=== PATIENT | male | born 1960 | race Two or more races ===

== ENCOUNTER → 2023-04-02 | Outpatient (CLI) | payer OTHER, MEDICAID ==
[2023-04-02 08:39] LABS: Basophils # (auto) 0 10 ^3/uL (0-0.2); Basophils % (auto) 0.7 % (0.0-2.0); Eosinophils # (auto) 0.3 10 ^3/uL (0-0.8); Eosinophils % (auto) 5.6 % (0.0-7.0); Hematocrit 42.8 % (41.0-53.0); Hemoglobin 14.7 g/dL (13.5-17.5); Lymphocytes # (auto) 1.6 10 ^3/uL (0.4-5.4); Lymphocytes % (auto) 35.5 % (10.0-50.0); Mean Corpuscular Hemoglobin 29.9 pg (28.0-32.0); Mean Corpuscular Hgb Conc. 34.2 g/dL (32.0-36.0); Mean Corpuscular Volume 87.3 fL (80.0-100.0); Monocytes # (auto) 0.3 10 ^3/uL (0-1.3); Monocytes % (auto) 5.7 % (0.0-12.0); Neutrophils # (auto) 2.3 10 ^3/uL (1.6-8.6); Neutrophils % (auto) 52.5 % (37.0-80.0); Nucleated Red Blood Cells % 0.1 %; Red Blood Cells 4.91 10^6/uL (4.5-5.90); Red Cell Distribution Width 13.7 % (11.8-14.3); White Blood Cell 4.4 10^3/uL (4.4-10.8)
[2023-04-02 09:24] LABS: Alanine Aminotransferase 18 U/L (7-40); Albumin 4.3 g/dL (3.2-4.8); Alkaline Phosphatase 83 U/L (46-116); Anion Gap 5 (5-15); Aspartate Aminotransferase 22 U/L (13-40); BUN/Creatinine Ratio 9.7 (10.0-20.0); Bilirubin, Total 0.7 mg/dL (0.2-1.0); Blood Urea Nitrogen 12 mg/dL (9-23); Calcium 9.5 mg/dL (8.5-10.1); Carbon Dioxide 28 mmol/L (20-30); Chloride 106 mmol/L (98-107); Cholesterol 196 mg/dL (< 200); Glucose 95 mg/dL (74-106); HDL Cholesterol 27 mg/dL (40-59); LDL Cholesterol 151 mg/dL (< 100); Potassium 3.8 mmol/L (3.5-5.1); Sodium 139 mmol/L (136-145); Triglycerides 104 mg/dL (< 150)
[2023-04-02 09:25] LABS: Total Protein 7.4 g/dL (5.7-8.2)
[2023-04-02 09:30] LABS: Erythrocyte Sedimentation Rate 9 mm/hr (0-20)
[2023-04-02 09:59] LABS: Uric Acid 8.2 mg/dL (3.7-9.2)
[2023-04-02 12:47] LABS: Urine Bacteria NONE SEEN /hpf (None Seen); Urine Blood Negative /uL (Negative); Urine Clarity Clear (Clear); Urine Color Yellow (Yellow); Urine Protein, UAD Negative (Negative); Urine Specific Gravity 1.019 (1.001-1.035); Urine Urobilinogen Normal (Negative); Urine WBC <1 /hpf (0 - 3); Urine pH 6.5 (5.0-8.0)
== END | disposition home or self-care (01) ==
LOC: LAB 08:19
PROVIDERS: ATTEND Internal Medicine
DX: Z12.5 Encounter for screening for malignant neoplasm of prostate (principal); M06.9 Rheumatoid arthritis, unspecified; M54.50 Low back pain, unspecified; M25.551 Pain in right hip; M79.641 Pain in right hand; F81.9 Developmental disorder of scholastic skills, unspecified
CPT/HCPCS: 36415; 80053; 80061; 81001; 83036; 84153; 84550; 85025; 85652; 86431

== ENCOUNTER 2023-05-01 10:37 | Inpatient (IN) | payer OTHER, MEDICAID ==
[~2023-05-01] VITALS: Ht 188 cm; Wt 102.6 kg
[2023-05-01 11:07] LABS: Basophils # (auto) 0.1 10 ^3/uL (0-0.2); Basophils % (auto) 1.5 % (0.0-2.0); Eosinophils # (auto) 0.1 10 ^3/uL (0-0.8); Eosinophils % (auto) 1.3 % (0.0-7.0); Hematocrit 45.7 % (41.0-53.0); Hemoglobin 15.6 g/dL (13.5-17.5); Lymphocytes # (auto) 1.9 10 ^3/uL (0.4-5.4); Lymphocytes % (auto) 30.6 % (10.0-50.0); Mean Corpuscular Hgb Conc. 34.2 g/dL (32.0-36.0); Mean Corpuscular Volume 87.7 fL (80.0-100.0); Monocytes # (auto) 0.2 10 ^3/uL (0-1.3); Monocytes % (auto) 4.1 % (0.0-12.0); Neutrophils # (auto) 3.8 10 ^3/uL (1.6-8.6); Neutrophils % (auto) 62.5 % (37.0-80.0); Nucleated Red Blood Cells % 0.6 %; Red Blood Cells 5.21 10^6/uL (4.5-5.90); Red Cell Distribution Width 13.9 % (11.8-14.3); White Blood Cell 6.1 10^3/uL (4.4-10.8)
[2023-05-01 11:20] LABS: Chloride 109 mmol/L (98-107); Potassium 3.7 mmol/L (3.5-5.1); Sodium 144 mmol/L (136-145)
[2023-05-01 11:21] LABS: Anion Gap 6 (5-15); Calcium 9.5 mg/dL (8.5-10.1); Carbon Dioxide 29 mmol/L (20-30)
[2023-05-01 11:23] LABS: INR 1.1 (0.9-1.15); Prothrombin Time 11.5 sec (9.3-11.8)
[2023-05-01 11:26] LABS: BUN/Creatinine Ratio 7.8 (10.0-20.0); Blood Urea Nitrogen 9 mg/dL (9-23); Glucose 97 mg/dL (74-106)
[2023-05-01] MEDS: ASPirin 81 mg TAB PO ONE (11:58)
[2023-05-01 14:18] LABS: Urine Bacteria NONE SEEN /hpf (None Seen); Urine Blood Negative /uL (Negative); Urine Clarity Clear (Clear); Urine Color Yellow (Yellow); Urine Mucus FEW (None Seen); Urine Protein, UAD TRACE (Negative); Urine Specific Gravity 1.023 (1.001-1.035); Urine Urobilinogen Normal (Negative); Urine WBC 2 /hpf (0 - 3); Urine pH 5.5 (5.0-8.0)
[2023-05-01 15:23] VITALS: PULSE 71; RESP 18; O2SAT 96
[2023-05-01] MEDS ORDERED: NITROGLYCERIN 0.4 MG SL TAB SL PRN (15:30)
[2023-05-01] MEDS ORDERED: MORPHINE SULFATE INJ 2 MG/ml SYRG IV PRN (15:30)
[2023-05-01 17:10] VITALS: RESP 18; O2SAT 96
[2023-05-01 20:00] VITALS: PULSE 96
[2023-05-01] MEDS: ATORVASTATIN 20 MG TAB PO SCH (21:14)
[2023-05-01 22:08] VITALS: BP 104/55; PULSE 89; RESP 20; TEMP 98.6; O2SAT 96
[2023-05-02] VITALS (7 sets, daily range): BP systolic 110–129; BP diastolic 60–68; PULSE 64–89; RESP 16–20; TEMP 97.5–98.2; O2SAT 91–97
[2023-05-02 06:12] LABS: Basophils # (auto) 0 10 ^3/uL (0-0.2); Basophils % (auto) 0.4 % (0.0-2.0); Eosinophils # (auto) 0.2 10 ^3/uL (0-0.8); Hematocrit 42.6 % (41.0-53.0); Hemoglobin 14.6 g/dL (13.5-17.5); Lymphocytes # (auto) 1.7 10 ^3/uL (0.4-5.4); Lymphocytes % (auto) 30.9 % (10.0-50.0); Mean Corpuscular Hgb Conc. 34.2 g/dL (32.0-36.0); Mean Corpuscular Volume 87.9 fL (80.0-100.0); Monocytes # (auto) 0.3 10 ^3/uL (0-1.3); Monocytes % (auto) 5.9 % (0.0-12.0); Neutrophils # (auto) 3.3 10 ^3/uL (1.6-8.6); Neutrophils % (auto) 58.8 % (37.0-80.0); Nucleated Red Blood Cells % 0.1 %; Red Blood Cells 4.85 10^6/uL (4.5-5.90); Red Cell Distribution Width 13.7 % (11.8-14.3); White Blood Cell 5.6 10^3/uL (4.4-10.8)
[2023-05-02 06:16] LABS: Chloride 110 mmol/L (98-107); Potassium 3.4 mmol/L (3.5-5.1); Sodium 142 mmol/L (136-145)
[2023-05-02 06:17] LABS: Anion Gap 5 (5-15); Carbon Dioxide 27 mmol/L (20-30)
[2023-05-02 06:18] LABS: Calcium 8.7 mg/dL (8.7-10.4)
[2023-05-02 06:22] LABS: Glucose 100 mg/dL (74-106)
[2023-05-02 06:23] LABS: BUN/Creatinine Ratio 11.7 (10.0-20.0); Blood Urea Nitrogen 13 mg/dL (9-23); Magnesium 1.8 mg/dL (1.6-2.6)
[2023-05-02 08:44] LABS: LDL Cholesterol 133 mg/dL (< 100); Triglycerides 100 mg/dL (< 150)
[2023-05-02 08:46] LABS: Cholesterol 169 mg/dL (< 200); HDL Cholesterol 26 mg/dL (40-59)
[2023-05-02] MEDS ORDERED: ASPirin 81 mg TAB PO SCH ×2 (10:00)
[2023-05-02] MEDS ORDERED: CLOPIDOGREL BISULFATE 75 MG TAB PO SCH (10:00)
[2023-05-02] MEDS: ENOXAPARIN SOD 40 MG/0.4 ML SYRINGE SC ONE (12:53)
[2023-05-02] MEDS: POTASSIUM CHL 10 Meq TABLET PO ONE (12:53)
[2023-05-03] VITALS (8 sets, daily range): BP systolic 90–132; BP diastolic 60–79; PULSE 71–85; RESP 18–20; TEMP 97.9–98.6; O2SAT 94–98
[2023-05-03 06:13] LABS: Chloride 108 mmol/L (98-107); Potassium 3.5 mmol/L (3.5-5.1); Sodium 141 mmol/L (136-145)
[2023-05-03 06:14] LABS: Anion Gap 7 (5-15); Calcium 8.6 mg/dL (8.7-10.4); Carbon Dioxide 26 mmol/L (20-30)
[2023-05-03 06:19] LABS: BUN/Creatinine Ratio 13.2 (10.0-20.0); Blood Urea Nitrogen 14 mg/dL (9-23); Glucose 110 mg/dL (74-106)
[2023-05-03 06:20] LABS: Magnesium 1.9 mg/dL (1.6-2.6)
[2023-05-03] MEDS ORDERED: IBUPROFEN 400 MG TAB PO PRN (10:30)
[2023-05-03] MEDS ORDERED: ACETAMINOPHEN 500 MG TAB PO PRN (10:30)
[2023-05-03] MEDS: ENOXAPARIN SOD 40 MG/0.4 ML SYRINGE SC SCH (10:50)
[2023-05-03] MEDS: PANTOPRAZOLE 40 MG TAB PO ONE (10:54)
[2023-05-03] MEDS: DexAMETHasone SOD PHOS 10MG/1ML VIAL INJ IV ONE (11:20)
[2023-05-03] MEDS: LORazepam 2MG/ML-1ML VIAL IV ONE (11:45)
[2023-05-03] MEDS ORDERED: DexAMETHasone 4 MG TAB PO SCH (12:00)
[2023-05-03] MEDS: DexAMETHasone 4 MG TAB PO SCH (17:39)
[2023-05-04] VITALS (7 sets, daily range): BP systolic 106–128; BP diastolic 44–81; PULSE 70–95; RESP 16–20; TEMP 97.4–98.1; O2SAT 94–98
[2023-05-04] MEDS: PANTOPRAZOLE 40 MG TAB PO SCH (09:25)
[2023-05-05] VITALS (7 sets, daily range): BP systolic 110–143; BP diastolic 64–84; PULSE 61–75; RESP 18–20; TEMP 97.6–98.3; O2SAT 94–99
[2023-05-06] VITALS (8 sets, daily range): BP systolic 100–129; BP diastolic 53–99; PULSE 58–74; RESP 17–20; TEMP 97.6–98.4; O2SAT 95–99
[2023-05-06 05:40] LABS: Basophils # (auto) 0 10 ^3/uL (0-0.2); Basophils % (auto) 0.1 % (0.0-2.0); Eosinophils # (auto) 0 10 ^3/uL (0-0.8); Hemoglobin 15.2 g/dL (13.5-17.5); Lymphocytes # (auto) 1.2 10 ^3/uL (0.4-5.4); Lymphocytes % (auto) 11.4 % (10.0-50.0); Mean Corpuscular Hemoglobin 30.5 pg (28.0-32.0); Mean Corpuscular Hgb Conc. 34.7 g/dL (32.0-36.0); Monocytes # (auto) 0.3 10 ^3/uL (0-1.3); Neutrophils # (auto) 9.1 10 ^3/uL (1.6-8.6); Neutrophils % (auto) 85.5 % (37.0-80.0); Red Cell Distribution Width 13.8 % (11.8-14.3); White Blood Cell 10.6 10^3/uL (4.4-10.8)
[2023-05-06 05:58] LABS: Alanine Aminotransferase 33 U/L (7-40); Alkaline Phosphatase 85 U/L (46-116); Anion Gap 5 (5-15); Aspartate Aminotransferase 30 U/L (13-40); BUN/Creatinine Ratio 19.7 (10.0-20.0); Blood Urea Nitrogen 23 mg/dL (9-23); Calcium 9.2 mg/dL (8.7-10.4); Carbon Dioxide 26 mmol/L (20-30); Chloride 106 mmol/L (98-107); Glucose 119 mg/dL (74-106); Magnesium 2.2 mg/dL (1.6-2.6); Potassium 4.2 mmol/L (3.5-5.1); Sodium 137 mmol/L (136-145)
[2023-05-06 05:59] LABS: Bilirubin, Total 0.6 mg/dL (0.2-1.0); Total Protein 7.1 g/dL (5.7-8.2)
[2023-05-07 05:18] VITALS: BP 135/77; PULSE 58; RESP 17; TEMP 97.7; O2SAT 96
[2023-05-07 06:03] LABS: Anion Gap 5 (5-15); Carbon Dioxide 27 mmol/L (20-30); Chloride 105 mmol/L (98-107); Potassium 4.2 mmol/L (3.5-5.1); Sodium 137 mmol/L (136-145)
[2023-05-07 06:04] LABS: Calcium 9.5 mg/dL (8.7-10.4)
[2023-05-07 06:09] LABS: BUN/Creatinine Ratio 19.7 (10.0-20.0); Blood Urea Nitrogen 23 mg/dL (9-23); Glucose 116 mg/dL (74-106)
[2023-05-07 06:10] LABS: Magnesium 2.3 mg/dL (1.6-2.6)
[2023-05-07 08:00] VITALS: PULSE 54
[2023-05-07 09:00] VITALS: BP 120/74; PULSE 60; RESP 17; TEMP 97.7; O2SAT 99
[2023-05-07] MEDS ORDERED: fentaNYL CITRATE 100 MCG/2 ML VL ONE ×2 (12:36→15:32)
[2023-05-07] MEDS ORDERED: MEPERIDINE HCL (50 MG/ML) 1 ML VIAL ONE (12:36)
[2023-05-07] MEDS ORDERED: MIDAZOLAM HCL 2MG/2ML 2ml VIAL (1mg/ml) ONE (12:37)
[2023-05-07] MEDS ORDERED: ePHEDrine SULFATE 50 MG/ML AMP IV PRN (13:45)
[2023-05-07] MEDS ORDERED: ONDANSETRON HCL 4 MG/2 ML VIAL IV PRN ×2 (13:45→16:15)
[2023-05-07] MEDS ORDERED: hydrALAZINE HCL 20 MG/ML VL IV PRN (13:45)
[2023-05-07] MEDS ORDERED: MORPHINE SULFATE 4 MG/ML SYR/VIAL IV PRN (13:45)
[2023-05-07] MEDS ORDERED: LABETALOL HCL 5 MG/ML 4ML SYRINGE IV PRN (13:45)
[2023-05-07] MEDS ORDERED: MIDAZOLAM HCL 2MG/2ML 2ml VIAL (1mg/ml) IV PRN (13:45)
[2023-05-07] MEDS ORDERED: HYDROmorphone HCL 2 MG/ML VL/or syr IV PRN (13:45)
[2023-05-07] MEDS ORDERED: ONDANSETRON HCL 4 MG/2 ML VIAL ONE (13:47)
[2023-05-07] MEDS ORDERED: PROPOFOL 10 MG/ML 20 ML IV ONE (13:47)
[2023-05-07] MEDS ORDERED: DexAMETHasone SOD PHOS 10MG/1ML VIAL INJ ONE (13:47)
[2023-05-07] MEDS ORDERED: SUGAMMADEX 200mg/2ml Vial (100MG/ML) IV ONE (16:20)
[2023-05-07 16:48] VITALS: O2SAT 97
[2023-05-07] MEDS: ceFAZolin 1GM/50ML 50 ML IV SCH (18:28)
[2023-05-07] MEDS: D5W/SOD CHLO 0.9% 1,000 ML IV SCH (18:28)
[2023-05-07] MEDS: TRANEXAMIC ACID 20 ML ONE (18:38)
[2023-05-07] MEDS: ceFAZolin 2 GM/D5W50ml 50 ML IV ONE (18:38)
[2023-05-07 20:00] VITALS: PULSE 106
[2023-05-07 22:00] VITALS: BP 143/70; PULSE 94; RESP 18; TEMP 97.4; O2SAT 94
[2023-05-07] MEDS: CYCLOBENZAPRINE HCL 10 MG TAB PO SCH (22:09)
[2023-05-07] MEDS: DOCUSATE SOD 100 MG CAP PO SCH (22:10)
[2023-05-08] VITALS (9 sets, daily range): BP systolic 115–154; BP diastolic 68–83; PULSE 19–93; RESP 18–75; TEMP 97.8–98.8; O2SAT 95–100
[2023-05-08] MEDS: ceFAZolin 1GM/50ML 50 ML IV SCH ×2 (03:03→17:00)
[2023-05-08 08:19] LABS: Basophils # (auto) 0 10 ^3/uL (0-0.2); Basophils % (auto) 0.2 % (0.0-2.0); Eosinophils # (auto) 0 10 ^3/uL (0-0.8); Eosinophils % (auto) 0.1 % (0.0-7.0); Hematocrit 42.6 % (41.0-53.0); Hemoglobin 14.8 g/dL (13.5-17.5); Lymphocytes # (auto) 0.8 10 ^3/uL (0.4-5.4); Lymphocytes % (auto) 7.4 % (10.0-50.0); Mean Corpuscular Hemoglobin 30.4 pg (28.0-32.0); Mean Corpuscular Hgb Conc. 34.7 g/dL (32.0-36.0); Mean Corpuscular Volume 87.5 fL (80.0-100.0); Monocytes # (auto) 0.7 10 ^3/uL (0-1.3); Monocytes % (auto) 6.5 % (0.0-12.0); Neutrophils # (auto) 9.1 10 ^3/uL (1.6-8.6); Neutrophils % (auto) 85.8 % (37.0-80.0); Nucleated Red Blood Cells % 0.1 %; Red Blood Cells 4.87 10^6/uL (4.5-5.90); Red Cell Distribution Width 13.8 % (11.8-14.3); White Blood Cell 10.6 10^3/uL (4.4-10.8)
[2023-05-08] MEDS ORDERED: ALBUTEROL SULF 2.5 MG/0.5ML(0.5%) NEB SOLN NEB PRN (08:30)
[2023-05-08 08:35] LABS: Alanine Aminotransferase 36 U/L (7-40); Albumin 3.8 g/dL (3.2-4.8); Alkaline Phosphatase 78 U/L (46-116); Anion Gap 3 (5-15); Aspartate Aminotransferase 29 U/L (13-40); BUN/Creatinine Ratio 14.7 (10.0-20.0); Bilirubin, Total 0.7 mg/dL (0.2-1.0); Blood Urea Nitrogen 14 mg/dL (9-23); Calcium 8.4 mg/dL (8.5-10.1); Carbon Dioxide 25 mmol/L (20-30); Chloride 106 mmol/L (98-107); Glucose 128 mg/dL (74-106); Potassium 4.1 mmol/L (3.5-5.1); Sodium 134 mmol/L (136-145); Total Protein 6.2 g/dL (5.7-8.2)
[2023-05-08] MEDS: ceFAZolin 1GM/50ML 50 ML IV ONE (09:30)
[2023-05-08] MEDS: amLODIPine BESYLATE 5 MG TAB PO SCH (09:31)
[2023-05-08 10:55] LABS: Magnesium 2.1 mg/dL (1.6-2.6)
[2023-05-08] MEDS: CYCLOBENZAPRINE HCL 10 MG TAB PO SCH (13:29)
[2023-05-09] VITALS (14 sets, daily range): BP systolic 97–132; BP diastolic 51–79; PULSE 87–157; RESP 18–20; TEMP 97.9–100.6; O2SAT 92–100
[2023-05-09 06:26] LABS: Basophils # (auto) 0 10 ^3/uL (0-0.2); Eosinophils # (auto) 0 10 ^3/uL (0-0.8); Eosinophils % (auto) 0.6 % (0.0-7.0); Hematocrit 45.4 % (41.0-53.0); Hemoglobin 15.3 g/dL (13.5-17.5); Lymphocytes # (auto) 0.9 10 ^3/uL (0.4-5.4); Mean Corpuscular Hemoglobin 30.5 pg (28.0-32.0); Mean Corpuscular Hgb Conc. 33.6 g/dL (32.0-36.0); Mean Corpuscular Volume 90.7 fL (80.0-100.0); Monocytes # (auto) 0.9 10 ^3/uL (0-1.3); Monocytes % (auto) 10.4 % (0.0-12.0); Neutrophils # (auto) 6.3 10 ^3/uL (1.6-8.6); Nucleated Red Blood Cells % 0.2 %; Red Cell Distribution Width 13.9 % (11.8-14.3); White Blood Cell 8.1 10^3/uL (4.4-10.8)
[2023-05-09 08:42] LABS: Chloride 107 mmol/L (98-107); Potassium 3.5 mmol/L (3.5-5.1); Sodium 135 mmol/L (136-145)
[2023-05-09 08:43] LABS: Anion Gap 3 (5-15); Calcium 8.5 mg/dL (8.5-10.1); Carbon Dioxide 25 mmol/L (20-30)
[2023-05-09 08:48] LABS: BUN/Creatinine Ratio 14.8 (10.0-20.0); Blood Urea Nitrogen 13 mg/dL (9-23); Glucose 117 mg/dL (74-106)
[2023-05-09] MEDS: DOCUSATE SOD 100 MG CAP PO PRN (09:33)
[2023-05-09] MEDS: MORPHINE SULFATE 4 MG/ML SYR/VIAL IV PRN (13:00)
[2023-05-09] MEDS: SODIUM CHLORIDE 0.9% 1,000 ML IV SCH (14:00)
[2023-05-09] MEDS: POTASSIUM CHL 20 Meq TABLET PO ONE (14:47)
[2023-05-09] MEDS: ADENOSINE 6 MG/2 ML INJ IV ONE ×2 (15:34→15:42)
[2023-05-09] MEDS: METOPROLOL TARTRATE 1MG/1ML-5ML VIAL IV ONE ×2 (15:34→15:42)
[2023-05-09] MEDS: LORazepam 0.5 MG TAB PO PRN (15:59)
[2023-05-09] MEDS: ACETAMINOPHEN 325 MG TAB PO PRN (17:11)
[2023-05-09] MEDS: SODIUM CHLORIDE 0.9% 1,000 ML IV ONE (17:30)
[2023-05-09 19:03] LABS: Urine Bacteria NONE SEEN /hpf (None Seen); Urine Blood 1+ /uL (Negative); Urine Clarity Clear (Clear); Urine Color Yellow (Yellow); Urine Mucus FEW (None Seen); Urine Protein, UAD TRACE (Negative); Urine Specific Gravity 1.019 (1.001-1.035); Urine Urobilinogen Normal (Negative); Urine WBC 1 /hpf (0 - 3); Urine pH 5.5 (5.0-8.0)
[2023-05-09] MEDS ORDERED: ceFAZolin 1GM/50ML 50 ML IV SCH (20:00)
[2023-05-10] VITALS (7 sets, daily range): BP systolic 101–139; BP diastolic 60–70; PULSE 89–133; RESP 16–20; TEMP 97.4–100.6; O2SAT 95–99
[2023-05-10] MEDS: ceFAZolin 1GM/50ML 50 ML IV SCH (04:11)
[2023-05-10 05:52] LABS: Basophils # (auto) 0 10 ^3/uL (0-0.2); Basophils % (auto) 0.1 % (0.0-2.0); Eosinophils # (auto) 0 10 ^3/uL (0-0.8); Eosinophils % (auto) 0.2 % (0.0-7.0); Hematocrit 40.6 % (41.0-53.0); Hemoglobin 14.4 g/dL (13.5-17.5); Lymphocytes # (auto) 0.8 10 ^3/uL (0.4-5.4); Lymphocytes % (auto) 8.6 % (10.0-50.0); Mean Corpuscular Hgb Conc. 35.5 g/dL (32.0-36.0); Mean Corpuscular Volume 87.2 fL (80.0-100.0); Monocytes # (auto) 0.4 10 ^3/uL (0-1.3); Monocytes % (auto) 4.4 % (0.0-12.0); Neutrophils # (auto) 7.9 10 ^3/uL (1.6-8.6); Neutrophils % (auto) 86.7 % (37.0-80.0); Red Blood Cells 4.66 10^6/uL (4.5-5.90); White Blood Cell 9.1 10^3/uL (4.4-10.8)
[2023-05-10 05:59] LABS: Chloride 107 mmol/L (98-107); Potassium 3.9 mmol/L (3.5-5.1); Sodium 136 mmol/L (136-145)
[2023-05-10 06:00] LABS: Anion Gap 6 (5-15); Calcium 8.5 mg/dL (8.7-10.4); Carbon Dioxide 23 mmol/L (20-30)
[2023-05-10 06:05] LABS: BUN/Creatinine Ratio 19.8 (10.0-20.0); Blood Urea Nitrogen 20 mg/dL (9-23); Glucose 118 mg/dL (74-106)
[2023-05-10 06:06] LABS: Magnesium 1.9 mg/dL (1.6-2.6)
[2023-05-10] MEDS ORDERED: VANCOMYCIN PER PHARMACY 0 MG IV SCH (11:30)
[2023-05-10] MEDS: VANCOMYCIN 1GM/200ML 200 ML IV ONE (13:22)
[2023-05-10] MEDS: MEROPENEM 2 GM in SODIUM CHL 0.9% 250 ML IV SCH (16:05)
[2023-05-10] MEDS ORDERED: DexAMETHasone SOD PHOS 10MG/1ML VIAL INJ IV SCH (18:00)
[2023-05-10] MEDS ORDERED: PANTOPRAZOLE 40 MG/10 ML VIAL INJ IV ONE (18:00)
[2023-05-10] MEDS: VANCOMYCIN 1GM/200ML 200 ML IV SCH (20:57)
[2023-05-10] MEDS: HYDROcodone-ACET 10/325MG TAB PO PRN (22:31)
[2023-05-11] VITALS (7 sets, daily range): BP systolic 103–124; BP diastolic 58–70; PULSE 87–106; RESP 14–20; TEMP 97.5–98; O2SAT 94–100
[2023-05-11 05:29] LABS: Basophils # (auto) 0 10 ^3/uL (0-0.2); Basophils % (auto) 0.1 % (0.0-2.0); Eosinophils # (auto) 0.1 10 ^3/uL (0-0.8); Eosinophils % (auto) 0.9 % (0.0-7.0); Hematocrit 38.7 % (41.0-53.0); Hemoglobin 13.3 g/dL (13.5-17.5); Lymphocytes # (auto) 1.2 10 ^3/uL (0.4-5.4); Lymphocytes % (auto) 18.2 % (10.0-50.0); Mean Corpuscular Hemoglobin 30.4 pg (28.0-32.0); Mean Corpuscular Hgb Conc. 34.4 g/dL (32.0-36.0); Mean Corpuscular Volume 88.2 fL (80.0-100.0); Monocytes # (auto) 0.7 10 ^3/uL (0-1.3); Monocytes % (auto) 10.9 % (0.0-12.0); Neutrophils # (auto) 4.5 10 ^3/uL (1.6-8.6); Neutrophils % (auto) 69.9 % (37.0-80.0); Nucleated Red Blood Cells % 0.1 %; Red Blood Cells 4.39 10^6/uL (4.5-5.90); Red Cell Distribution Width 13.9 % (11.8-14.3); White Blood Cell 6.5 10^3/uL (4.4-10.8)
[2023-05-11 05:51] LABS: Alanine Aminotransferase 48 U/L (7-40); Alkaline Phosphatase 71 U/L (46-116); Anion Gap 6 (5-15); Aspartate Aminotransferase 66 U/L (13-40); BUN/Creatinine Ratio 19.8 (10.0-20.0); Blood Urea Nitrogen 20 mg/dL (9-23); Calcium 7.7 mg/dL (8.7-10.4); Carbon Dioxide 23 mmol/L (20-30); Chloride 108 mmol/L (98-107); Glucose 121 mg/dL (74-106); Magnesium 2.1 mg/dL (1.6-2.6); Potassium 3.7 mmol/L (3.5-5.1); Sodium 137 mmol/L (136-145)
[2023-05-11 05:52] LABS: Bilirubin, Total 1.2 mg/dL (0.2-1.0); Total Protein 5.6 g/dL (5.7-8.2)
[2023-05-11] MEDS ORDERED: PANTOPRAZOLE 40 MG/10 ML VIAL INJ IV SCH (10:00)
[2023-05-11 10:19] LABS: INR 1.19 (0.9-1.15); Partial Thromboplastin Time 37.3 SEC (24.5-34.5); Prothrombin Time 12.4 sec (9.3-11.8)
[2023-05-11] MEDS: MILK OF MAGNESIA 30ML SUSP PO PRN (10:28)
[2023-05-11] MEDS: SODIUM CHLORIDE 0.9% 1,000 ML IV SCH (16:30)
[2023-05-12 05:00] VITALS: BP_SYST 116; BP_SYST 117; BP_DIAS 44; BP_DIAS 57; PULSE 77; PULSE 87; RESP 17; RESP 19; TEMP 97.8; TEMP 98; O2SAT 94; O2SAT 96
[2023-05-12 06:23] LABS: Basophils # (auto) 0 10 ^3/uL (0-0.2); Basophils % (auto) 0.1 % (0.0-2.0); Eosinophils # (auto) 0.1 10 ^3/uL (0-0.8); Eosinophils % (auto) 1.8 % (0.0-7.0); Hematocrit 36.1 % (41.0-53.0); Hemoglobin 12.5 g/dL (13.5-17.5); Lymphocytes # (auto) 1.2 10 ^3/uL (0.4-5.4); Lymphocytes % (auto) 16.8 % (10.0-50.0); Mean Corpuscular Hemoglobin 30.5 pg (28.0-32.0); Mean Corpuscular Hgb Conc. 34.6 g/dL (32.0-36.0); Mean Corpuscular Volume 88.2 fL (80.0-100.0); Monocytes # (auto) 0.7 10 ^3/uL (0-1.3); Monocytes % (auto) 9.3 % (0.0-12.0); Neutrophils # (auto) 5.3 10 ^3/uL (1.6-8.6); Red Blood Cells 4.09 10^6/uL (4.5-5.90); Red Cell Distribution Width 14.3 % (11.8-14.3); White Blood Cell 7.4 10^3/uL (4.4-10.8)
[2023-05-12 06:37] LABS: Alanine Aminotransferase 58 U/L (7-40); Albumin 2.9 g/dL (3.2-4.8); Alkaline Phosphatase 68 U/L (46-116); Anion Gap 5 (5-15); Aspartate Aminotransferase 86 U/L (13-40); BUN/Creatinine Ratio 22.4 (10.0-20.0); Blood Urea Nitrogen 19 mg/dL (9-23); Calcium 8.1 mg/dL (8.7-10.4); Carbon Dioxide 24 mmol/L (20-30); Chloride 107 mmol/L (98-107); Glucose 120 mg/dL (74-106); Potassium 3.7 mmol/L (3.5-5.1); Sodium 136 mmol/L (136-145)
[2023-05-12 06:38] LABS: Bilirubin, Total 0.6 mg/dL (0.2-1.0); Total Protein 5.3 g/dL (5.7-8.2)
[2023-05-12 06:48] LABS: Creatine Kinase IFCC 2075 U/L (46-171)
[2023-05-12 09:00] VITALS: BP 131/59; PULSE 77; RESP 18; TEMP 97.6; O2SAT 100
[2023-05-12] MEDS: SODIUM CHLORIDE 0.9% 1,000 ML IV SCH (12:45)
[2023-05-12 13:00] VITALS: BP 114/60; PULSE 91; RESP 20; TEMP 98; O2SAT 99
[2023-05-12 17:00] VITALS: BP 137/74; PULSE 100; RESP 18; TEMP 98.5; O2SAT 100
[2023-05-12 20:00] VITALS: BP 130/75; PULSE 96; PULSE 97; PULSE 99; RESP 20; TEMP 98.6; O2SAT 99
[2023-05-12 22:00] VITALS: BP 130/75; PULSE 102; RESP 20; TEMP 98.6; O2SAT 99
[2023-05-13] VITALS (8 sets, daily range): BP systolic 131–140; BP diastolic 74–87; PULSE 85–115; RESP 17–21; TEMP 97.9–98.8; O2SAT 96–100
[2023-05-13 04:40] LABS: Basophils # (auto) 0 10 ^3/uL (0-0.2); Basophils % (auto) 0.2 % (0.0-2.0); Eosinophils # (auto) 0.1 10 ^3/uL (0-0.8); Eosinophils % (auto) 1.7 % (0.0-7.0); Hematocrit 40.2 % (41.0-53.0); Hemoglobin 13.6 g/dL (13.5-17.5); Lymphocytes # (auto) 1.5 10 ^3/uL (0.4-5.4); Lymphocytes % (auto) 18.9 % (10.0-50.0); Mean Corpuscular Hgb Conc. 33.9 g/dL (32.0-36.0); Mean Corpuscular Volume 88.4 fL (80.0-100.0); Monocytes # (auto) 0.8 10 ^3/uL (0-1.3); Monocytes % (auto) 10.3 % (0.0-12.0); Neutrophils # (auto) 5.3 10 ^3/uL (1.6-8.6); Neutrophils % (auto) 68.9 % (37.0-80.0); Nucleated Red Blood Cells % 0.1 %; Red Blood Cells 4.54 10^6/uL (4.5-5.90); Red Cell Distribution Width 14.1 % (11.8-14.3); White Blood Cell 7.7 10^3/uL (4.4-10.8)
[2023-05-13 04:54] LABS: Alanine Aminotransferase 79 U/L (7-40); Albumin 3.1 g/dL (3.2-4.8); Alkaline Phosphatase 74 U/L (46-116); Anion Gap 5 (5-15); Aspartate Aminotransferase 82 U/L (13-40); BUN/Creatinine Ratio 23.8 (10.0-20.0); Blood Urea Nitrogen 20 mg/dL (9-23); Calcium 8.4 mg/dL (8.7-10.4); Carbon Dioxide 25 mmol/L (20-30); Chloride 106 mmol/L (98-107); Glucose 113 mg/dL (74-106); Magnesium 1.9 mg/dL (1.6-2.6); Potassium 4.1 mmol/L (3.5-5.1); Sodium 136 mmol/L (136-145)
[2023-05-13 04:55] LABS: Bilirubin, Total 0.7 mg/dL (0.2-1.0); Total Protein 5.4 g/dL (5.7-8.2)
[2023-05-13] MEDS ORDERED: guaiFENesin-DM 100/10mg/5ml SYR PO PRN (09:00)
[2023-05-13] MEDS: SODIUM CHLORIDE 0.9% 1,000 ML IV SCH (09:00)
[2023-05-14] VITALS (9 sets, daily range): BP systolic 118–128; BP diastolic 61–70; PULSE 95–121; RESP 18–22; TEMP 36.8; O2SAT 93–100
[2023-05-14 06:35] LABS: Basophils # (auto) 0 10 ^3/uL (0-0.2); Basophils % (auto) 0.2 % (0.0-2.0); Eosinophils # (auto) 0.2 10 ^3/uL (0-0.8); Eosinophils % (auto) 1.9 % (0.0-7.0); Hematocrit 41.3 % (41.0-53.0); Hemoglobin 14.1 g/dL (13.5-17.5); Lymphocytes # (auto) 1.7 10 ^3/uL (0.4-5.4); Mean Corpuscular Hemoglobin 30.1 pg (28.0-32.0); Mean Corpuscular Hgb Conc. 34.3 g/dL (32.0-36.0); Mean Corpuscular Volume 87.9 fL (80.0-100.0); Monocytes # (auto) 0.8 10 ^3/uL (0-1.3); Neutrophils # (auto) 6.1 10 ^3/uL (1.6-8.6); Neutrophils % (auto) 69.9 % (37.0-80.0); Nucleated Red Blood Cells % 0.1 %; Red Blood Cells 4.69 10^6/uL (4.5-5.90); Red Cell Distribution Width 13.9 % (11.8-14.3); White Blood Cell 8.8 10^3/uL (4.4-10.8)
[2023-05-14 06:51] LABS: Alanine Aminotransferase 99 U/L (7-40); Alkaline Phosphatase 80 U/L (46-116); Anion Gap 4 (5-15); Aspartate Aminotransferase 84 U/L (13-40); BUN/Creatinine Ratio 22.2 (10.0-20.0); Blood Urea Nitrogen 18 mg/dL (9-23); Carbon Dioxide 27 mmol/L (20-30); Chloride 103 mmol/L (98-107); Glucose 100 mg/dL (74-106); Potassium 4.1 mmol/L (3.5-5.1); Sodium 134 mmol/L (136-145)
[2023-05-14 06:52] LABS: Albumin 3.4 g/dL (3.2-4.8); Bilirubin, Total 0.8 mg/dL (0.2-1.0); Creatine Kinase IFCC 1073 U/L (46-171); Total Protein 6.2 g/dL (5.7-8.2)
[2023-05-14] MEDS: IOHEXOL 300 MG/ML 100ML BOTTLE IJ ONE (12:16)
[2023-05-14] MEDS: SODIUM CHLORIDE 0.9% 1,000 ML IV SCH (13:29)
[2023-05-15] VITALS (8 sets, daily range): BP systolic 113–141; BP diastolic 68–73; PULSE 94–115; RESP 18–20; TEMP 97.7–98.3; O2SAT 96–100
[2023-05-15 05:25] LABS: Basophils # (auto) 0 10 ^3/uL (0-0.2); Basophils % (auto) 0.2 % (0.0-2.0); Eosinophils # (auto) 0.1 10 ^3/uL (0-0.8); Eosinophils % (auto) 1.4 % (0.0-7.0); Hematocrit 39.4 % (41.0-53.0); Hemoglobin 13.6 g/dL (13.5-17.5); Lymphocytes # (auto) 1.8 10 ^3/uL (0.4-5.4); Lymphocytes % (auto) 17.4 % (10.0-50.0); Mean Corpuscular Hemoglobin 30.1 pg (28.0-32.0); Mean Corpuscular Hgb Conc. 34.4 g/dL (32.0-36.0); Mean Corpuscular Volume 87.4 fL (80.0-100.0); Monocytes # (auto) 0.8 10 ^3/uL (0-1.3); Monocytes % (auto) 8.2 % (0.0-12.0); Neutrophils # (auto) 7.5 10 ^3/uL (1.6-8.6); Neutrophils % (auto) 72.8 % (37.0-80.0); Nucleated Red Blood Cells % 0.2 %; Red Blood Cells 4.51 10^6/uL (4.5-5.90); Red Cell Distribution Width 13.9 % (11.8-14.3); White Blood Cell 10.3 10^3/uL (4.4-10.8)
[2023-05-15 05:38] LABS: Chloride 100 mmol/L (98-107); Potassium 4.4 mmol/L (3.5-5.1); Sodium 134 mmol/L (136-145)
[2023-05-15 05:39] LABS: Anion Gap 7 (5-15); Calcium 9.1 mg/dL (8.7-10.4); Carbon Dioxide 27 mmol/L (20-30)
[2023-05-15 05:44] LABS: Glucose 118 mg/dL (74-106); Magnesium 2.1 mg/dL (1.6-2.6)
[2023-05-15 05:45] LABS: Creatine Kinase IFCC 745 U/L (46-171)
[2023-05-15 05:46] LABS: BUN/Creatinine Ratio 22.6 (10.0-20.0); Blood Urea Nitrogen 19 mg/dL (9-23)
[2023-05-16] VITALS (8 sets, daily range): BP systolic 117–133; BP diastolic 69–81; PULSE 91–108; RESP 18–20; TEMP 97.4–98.6; O2SAT 97–100
[2023-05-16] MEDS ORDERED: fentaNYL CITRATE 100 MCG/2 ML VL ONE (10:04)
[2023-05-16] MEDS ORDERED: MEPERIDINE HCL (25 MG/ML) 1ML VIAL ONE (10:04)
[2023-05-16] MEDS ORDERED: MIDAZOLAM HCL 2MG/2ML 2ml VIAL (1mg/ml) ONE (10:04)
[2023-05-16] MEDS ORDERED: DexAMETHasone SOD PHOS 10MG/1ML VIAL INJ ONE (10:07)
[2023-05-16] MEDS ORDERED: PROPOFOL 10 MG/ML 20 ML IV ONE (10:07)
[2023-05-16] MEDS ORDERED: ETOMIDATE (2MG/ML) 20ML VIAL IV ONE (10:29)
[2023-05-16] MEDS ORDERED: ONDANSETRON HCL 4 MG/2 ML VIAL IV ONE (10:29)
[2023-05-16] MEDS ORDERED: SUCCINYLCHOLINE CHLORIDE 20 MG/ML 10ML VIAL IV ONE (10:29)
[2023-05-17] VITALS (8 sets, daily range): BP systolic 108–123; BP diastolic 66–75; PULSE 68–114; RESP 14–20; TEMP 97.4–98.4; O2SAT 95–99
[2023-05-17 06:16] LABS: Basophils # (auto) 0 10 ^3/uL (0-0.2); Basophils % (auto) 0.1 % (0.0-2.0); Eosinophils # (auto) 0.1 10 ^3/uL (0-0.8); Eosinophils % (auto) 0.7 % (0.0-7.0); Hemoglobin 13.4 g/dL (13.5-17.5); Lymphocytes # (auto) 1.8 10 ^3/uL (0.4-5.4); Mean Corpuscular Hemoglobin 30.1 pg (28.0-32.0); Mean Corpuscular Hgb Conc. 34.5 g/dL (32.0-36.0); Mean Corpuscular Volume 87.4 fL (80.0-100.0); Monocytes # (auto) 0.7 10 ^3/uL (0-1.3); Monocytes % (auto) 7.4 % (0.0-12.0); Neutrophils # (auto) 6.9 10 ^3/uL (1.6-8.6); Neutrophils % (auto) 72.8 % (37.0-80.0); Red Blood Cells 4.46 10^6/uL (4.5-5.90); Red Cell Distribution Width 13.9 % (11.8-14.3); White Blood Cell 9.5 10^3/uL (4.4-10.8)
[2023-05-17 06:30] LABS: Alanine Aminotransferase 89 U/L (7-40); Albumin 3.6 g/dL (3.2-4.8); Alkaline Phosphatase 83 U/L (46-116); Anion Gap 5 (5-15); Aspartate Aminotransferase 51 U/L (13-40); Blood Urea Nitrogen 21 mg/dL (9-23); Calcium 9.3 mg/dL (8.7-10.4); Carbon Dioxide 29 mmol/L (20-30); Chloride 99 mmol/L (98-107); Glucose 112 mg/dL (74-106); Potassium 4.8 mmol/L (3.5-5.1); Sodium 133 mmol/L (136-145)
[2023-05-17 06:31] LABS: Bilirubin, Total 0.6 mg/dL (0.2-1.0)
[2023-05-17 07:10] LABS: BUN/Creatinine Ratio 24.1 (10.0-20.0)
[2023-05-17 07:11] LABS: Magnesium 2.2 mg/dL (1.6-2.6)
[2023-05-18] VITALS (8 sets, daily range): BP systolic 112–143; BP diastolic 65–74; PULSE 80–130; RESP 16–20; TEMP 97.7–98.7; O2SAT 98–100
[2023-05-19] VITALS (8 sets, daily range): BP systolic 97–119; BP diastolic 59–69; PULSE 99–112; RESP 18–20; TEMP 98–99.3; O2SAT 94–100
[2023-05-20 01:00] VITALS: BP 127/71; PULSE 107; RESP 15; TEMP 98.1; O2SAT 96
[2023-05-20 05:00] VITALS: BP 121/72; PULSE 99; RESP 19; TEMP 97.9; O2SAT 100
[2023-05-20 08:00] VITALS: PULSE 90; RESP 16; O2SAT 99
== END 2023-05-20 10:30 | DRG 28 ==
LOC: ER 10:37 → TELE 15:22 → TELE-EAST 18:21
PROVIDERS: ADMIT Internal Medicine Geriatric Medicine; ATTEND Internal Medicine
PROC: 00NW0ZZ Release Cervical Spinal Cord, Open Approach (ICD-10-PCS; 2023-05-07)
PROC: 01N10ZZ Release Cervical Nerve, Open Approach (ICD-10-PCS; 2023-05-07)
PROC: 0W9K00Z Drainage of Upper Back with Drainage Device, Open Approach (ICD-10-PCS; 2023-05-07)
PROC: 0RG20A0 Fusion of 2 or more Cervical Vertebral Joints with Interbody Fusion Device, Anterior Approach, Anterior Column, Open Approach (ICD-10-PCS; principal; 2023-05-07 12:24)
PROC: 3E10X8Z Irrigation of Skin and Mucous Membranes using Irrigating Substance (ICD-10-PCS; 2023-05-16)
DX: S14.123A Central cord syndrome at C3 level of cervical spinal cord, initial encounter (principal); A41.50 Gram-negative sepsis, unspecified; M50.021 Cervical disc disorder at C4-C5 level with myelopathy; M47.12 Other spondylosis with myelopathy, cervical region; D62 Acute posthemorrhagic anemia; I50.32 Chronic diastolic (congestive) heart failure; M62.82 Rhabdomyolysis; N39.0 Urinary tract infection, site not specified; M48.02 Spinal stenosis, cervical region; S14.129A Central cord syndrome at unspecified level of cervical spinal cord, initial encounter; M25.78 Osteophyte, vertebrae; E78.5 Hyperlipidemia, unspecified; M47.814 Spondylosis without myelopathy or radiculopathy, thoracic region; M51.24 Other intervertebral disc displacement, thoracic region; M48.061 Spinal stenosis, lumbar region without neurogenic claudication; M47.22 Other spondylosis with radiculopathy, cervical region; M50.121 Cervical disc disorder at C4-C5 level with radiculopathy; D69.59 Other secondary thrombocytopenia; E66.9 Obesity, unspecified; E87.6 Hypokalemia; F03.90 Unspecified dementia, unspecified severity, without behavioral disturbance, psychotic disturbance, mood disturbance, and anxiety; I11.0 Hypertensive heart disease with heart failure; M16.11 Unilateral primary osteoarthritis, right hip; M47.816 Spondylosis without myelopathy or radiculopathy, lumbar region; Z79.899 Other long term (current) drug therapy; Z68.29 Body mass index [BMI] 29.0-29.9, adult
CPT/HCPCS: 36415; 70450; 70490; 70491; 70496; 70551; 71045; 72141; 72146; 72148; 76000; 80048; 80053; 80061; 80202; 81001; 82550; 82553; 82607; 82962; 83605; 83615; 83735; 83880; 84443; 84484; 85025; 85610; 85730; 86850; 86900; 86901; 87040; 87075; 87077; 87081; 87086; 87088; 87186; 87205; 93005; 93306; 96379; 97110; 97163; 97530; G0378; J0153; J0330; J1100; J2250; J2405; J2704; J7042

== ENCOUNTER → 2024-03-09 | Outpatient (CLI) | payer OTHER, MEDICAID ==
[2024-03-09 10:45] LABS: Basophils # (auto) 0 10 ^3/uL (0-0.2); Basophils % (auto) 0.4 % (0.0-2.0); Eosinophils # (auto) 0.4 10 ^3/uL (0-0.8); Eosinophils % (auto) 6.2 % (0.0-7.0); Hematocrit 39.7 % (41.0-53.0); Hemoglobin 13.6 g/dL (13.5-17.5); Lymphocytes # (auto) 2.3 10 ^3/uL (0.4-5.4); Lymphocytes % (auto) 37.7 % (10.0-50.0); Mean Corpuscular Hemoglobin 29.1 pg (28.0-32.0); Mean Corpuscular Hgb Conc. 34.1 g/dL (32.0-36.0); Mean Corpuscular Volume 85.2 fL (80.0-100.0); Monocytes # (auto) 0.4 10 ^3/uL (0-1.3); Monocytes % (auto) 5.7 % (0.0-12.0); Neutrophils # (auto) 3.1 10 ^3/uL (1.6-8.6); Nucleated Red Blood Cells % 0.2 %; Platelet Count (auto) 224 10^3/uL (140-450); Red Blood Cells 4.66 10^6/uL (4.5-5.90); Red Cell Distribution Width 14.6 % (11.8-14.3); White Blood Cell 6.2 10^3/uL (4.4-10.8)
[2024-03-09 11:08] LABS: Alanine Aminotransferase 11 U/L (7-40); Albumin 4.2 g/dL (3.2-4.8); Alkaline Phosphatase 115 U/L (46-116); Anion Gap 6 (5-15); Aspartate Aminotransferase 18 U/L (13-40); BUN/Creatinine Ratio 13.7 (10.0-20.0); Bilirubin, Total 0.5 mg/dL (0.2-1.0); Blood Urea Nitrogen 13 mg/dL (9-23); Calcium 10.4 mg/dL (8.7-10.4); Carbon Dioxide 30 mmol/L (20-31); Chloride 103 mmol/L (98-107); Cholesterol 197 mg/dL (< 200); Creatine Kinase IFCC 155 U/L (46-171); Glucose 84 mg/dL (74-106); Potassium 4.5 mmol/L (3.5-5.1); Sodium 139 mmol/L (136-145); Total Protein 7.9 g/dL (5.7-8.2); Triglycerides 94 mg/dL (< 150)
[2024-03-09 11:17] LABS: HDL Cholesterol 36 mg/dL (40-59); LDL Cholesterol 153 mg/dL (< 100); Prostate Specific Antigen 0.4 ng/mL (0.0-4.0)
[2024-03-09 13:19] LABS: Erythrocyte Sedimentation Rate 22 mm/hr (0-20)
== END | disposition home or self-care (01) ==
LOC: LAB 10:16
PROVIDERS: ATTEND Internal Medicine
DX: Z12.5 Encounter for screening for malignant neoplasm of prostate (principal); M47.816 Spondylosis without myelopathy or radiculopathy, lumbar region; M54.50 Low back pain, unspecified; E78.5 Hyperlipidemia, unspecified; F81.9 Developmental disorder of scholastic skills, unspecified
CPT/HCPCS: 36415; 80053; 80061; 82550; 82607; 85025; 85652; G0103; 84153

== ENCOUNTER 2024-04-07 10:58 | Inpatient (IN) | payer MEDICARE, MEDICAID ==
[~2024-04-07] VITALS: Ht 188 cm; Wt 23.9 kg
--- NOTE | 2024-04-07 11:13 | ED.PDOC ---
History of Present Illness HPI Comments This is a 63-year-old male who comes in with chief complaint of difficulty walking. According to the patient's sister, he was diagnosed with spinal stenosis and underwent surgery last year. The patient now is scheduled for another appointment in late May because of the decrease in mobility. The patient's saw the primary care doctor today and was referred to the emergency department's for further evaluation. There has been no chest pain or shortness for breath. The patient denies any fever or chills. The patient did have an MRI done of his hip as well as back and cervical spine last month. Chief Complaint: Back Pain Time Seen by MD: 11:02 Reviewed Notes: Nurses Notes, Medications, Allergies (No allergies to medications) Allergies: Coded Allergies: NO KNOWN ALLERGIES (Unverified , 05/01/23) Home Meds No Active Prescriptions or Reported Meds Information Source: Relative (Sibling) Mode of Arrival: EMS Severity: Moderate Timing: Days Duration: Since onset Prehospital treatment: None Associated signs and symptoms Lower back pain with decreased mobility Past Medical History PAST MEDICAL HISTORY: Denies Surgical History (Other): Back surgery Family History Family History: No family hx of Cancer, No family hx of DM, No family hx of Heart ashia, No family hx of HTN, No family hx ofKidney ashia, No family hx of Liver ashia, No family hx of Lung ashia, No family hx of Stroke Social History Smoker: Non-Smoker Alcohol: Denies ETOH Use Drugs: Denies Drug Use Lives In: Home Constitutional: denies: chills, diaphoresis, fatigue, fever, malaise, sweats, weakness, others EENTM: denies: blurred vision, double vision, ear bleeding, ear discharge, ear drainage, ear pain, ear ringing, eye pain, eye redness, hearing loss, mouth pain, mouth swelling, nasal discharge, nose bleeding, nose congestion, nose pain, photophobia, tearing, throat pain, throat swelling, voice changes, others Physical Exam General Appearance: Moderate Distress HEENT: Normal ENT Inspection, Pharynx Normal, TMs Normal Neck: Full Range of Motion, Non-Tender, Normal, Normal Inspection Respiratory: Chest Non-Tender, Lungs Clear, No Accessory Muscle Use, No Re spiratory Distress, Normal Breath Sounds Cardiovascular: No Edema, No JVD, No Murmur, No Gallop, Normal Peripheral Pulses, Regular Rate/Rhythm Breast Exam: Deferred Gastrointestinal: No Organomegaly, Non Tender, No Pulsatile Mass, Normal Bowel Sounds, Soft Genitalia: Deferred Pelvic: Deferred Rectal: Deferred Extremities: No calf tenderness, Normal capillary refill, No pedal edema Musculoskeletal : Location: Bilateral Extremity Location: Back Apperance: Limited ROM, Tenderness: Mild 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 Was a procedure done?: No EKG EKG : Pulse Rate (adult): 80 [place]: Normal Block: None Hypertrophy: RANI ST: Nonsp Differential Dx Considerations may include: Generalized weakness, failure to thrive, electrolyte imbalance, UTI X-Ray, Labs, Meds, VS Vital Signs Date Time Temp Pulse Resp B/P (MAP) Pulse Ox O2 Delivery O2 Flow Rate FiO2 04/07/24 11:54 80 04/07/24 11:43 80 04/07/24 11:00 98.2 74 18 151/90 (110) 96 Lab Test 04/07/24 13:30 04/07/24 11:25 Range/Units Urine Color Light-brown Yellow Urine Clarity Ex.turbid Clear Urine pH 6.5 5.0-9.0 Urine Specific [place] 1.020 1.001-1.035 Urine Protein 1+ H Negative Urine Ketones 1+ H Negative Urine Blood 1+ H Negative /uL Urine Nitrite 1+ H Negative Urine Bilirubin Negative Negative Urine Urobilinogen Normal Negative mg/dL Urine Leukocyte Esterase 3+ Negative /uL Urine RBC 51 0 - 3 /hpf Urine Microscopic WBC 137 H 0-3 /HPF Urine Squamous Epithelial Cells Mod <5 /hpf Urine Bacteria Few H None Seen /hpf Urine Mucus Few None Seen Urine Glucose Normal Normal mg/dL White Blood Count 7.0 4.4-10.8 10^3/uL Red Blood Count 4.82 4.5-5.90 10^6/uL Hemoglobin 14.0 13.5-17.5 g/dL Hematocrit 41.5 41.0-53.0 % Mean Corpuscular Volume 86.1 80.0-100.0 fL Mean Corpuscular Hemoglobin 29.0 28.0-32.0 pg Mean Corpuscular Hemoglobin Concent 33.7 32.0-36.0 g/dL Red Cell Distribution Width 14.8 H 11.8-14.3 % Platelet Count 232 140-450 10^3/uL Mean Platelet Volume 6.9 6.9-10.8 fL Neutrophils (%) (Auto) 50.1 37.0-80.0 % Lymphocytes (%) (Auto) 36.4 10.0-50.0 % Monocytes (%) (Auto) 5.2 0.0-12.0 % Eosinophils (%) (Auto) 7.6 H 0.0-7.0 % Basophils (%) (Auto) 0.7 0.0-2.0 % Neutrophils # (Auto) 3.5 1.6-8.6 10 ^3/uL Lymphocytes # (Auto) 2.6 0.4-5.4 10 ^3/uL Monocytes # (Auto) 0.4 0-1.3 10 ^3/uL Eosinophils # (Auto) 0.5 0-0.8 10 ^3/uL Basophils # (Auto) 0.1 0-0.2 10 ^3/uL Nucleated Red Blood Cells 0.1 % Sodium Level 144 136-145 mmol/L Potassium Level 4.0 3.5-5.1 mmol/L Chloride Level 106 98-107 mmol/L Carbon Dioxide Level 30 20-31 mmol/L Anion Gap 8 5-15 Blood Urea Nitrogen 13 9-23 mg/dL Creatinine 0.88 0.700-1.30 mg/dL Glomerular Filtration Rate Calc 97 >90 mL/min BUN/Creatinine Ratio 14.8 10.0-20.0 Serum Glucose 78 74-106 mg/dL Calcium Level 10.3 8.7-10.4 mg/dL MRI of the LS spine shows: IMPRESSION: 1. Multilevel degenerative changes in the lumbar spine as described by levels above, worst at L5-S1. 2. There is mild central canal stenosis and moderate to severe bilateral neural foraminal stenosis at L5-S1. 3. There is multilevel facet arthropathy in the lumbar spine, worse in the lower lumbar spine. There is soft tissue edema / inflammatory changes surrounding the posterior right L3-L4 facet joint. MRI of the right hip shows: IMPRESSION: 1. Mild right hip degenerative changes. 2. Tendinopathy and partial tear the right common hamstring origin involving the conjoint tendon and semimembranosus tendon. 3. Subacute or acute appearing fracture through the left ischial tuberosity. 4. Lumbar spondylosis. MRI for the C-spine shows: IMPRESSION: 1. Postsurgical changes with discectomy and anterior/interbody hardware fusion from the C3 to the C6 level. 2. There is posterior herniating disc or graft contents with heterogeneous signal at the C4-C5 and C5-C6 levels. There is severe spinal canal and bilateral neural foraminal stenosis at the C4-C5 level. 3. 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 4. Degenerative changes at the unfused levels as described above. HS:Y The patient's CBC and chemistry panel are within normal limits The urine test is positive for UTI The patient was started on Rocephin 1 g IV piggyback We are consulting with the spinal surgeon Images Reviewed?: Images reviewed and evaluated by me Time of 1ST Reevaluation: 15:11 Reevaluation 1ST: Unchanged Patient Education/Counseling: Diagnosis, Treatment, Prognosis Family Education/Counseling: Diagnosis, Treatment, Prognosis Departure 1 Departure Time of Disposition: 15:12 Impression: Primary Impression: Generalized weakness Additional Impression: UTI (urinary tract infection) Qualified Codes: N30.00 - Acute cystitis without hematuria Disposition: 09 ADMITTED INPATIENT Admit to: Tele Condition: Fair e-Prescriptions No Active Prescriptions or Reported Meds Critical Care Note Critical Care Time?: Yes (35 min-critical care time only) Stability Stability form required: Yes Unstable for transfer: ED Physician Assesment (Clinical assesment) Heart Score Heart Score: Heart Score Response (Comments) Value History N/A 0 EKG N/A 0 Age N/A 0 Risk Factors N/A 0 Troponin N/A 0 Total 0 LOU DUNAWAY MD Apr 07, 2024 11:12
[2024-04-07 11:59] LABS: Basophils # (auto) 0.1 10 ^3/uL (0-0.2); Basophils % (auto) 0.7 % (0.0-2.0); Eosinophils # (auto) 0.5 10 ^3/uL (0-0.8); Eosinophils % (auto) 7.6 % (0.0-7.0); Hematocrit 41.5 % (41.0-53.0); Lymphocytes # (auto) 2.6 10 ^3/uL (0.4-5.4); Lymphocytes % (auto) 36.4 % (10.0-50.0); Mean Corpuscular Hgb Conc. 33.7 g/dL (32.0-36.0); Mean Corpuscular Volume 86.1 fL (80.0-100.0); Monocytes # (auto) 0.4 10 ^3/uL (0-1.3); Monocytes % (auto) 5.2 % (0.0-12.0); Neutrophils # (auto) 3.5 10 ^3/uL (1.6-8.6); Neutrophils % (auto) 50.1 % (37.0-80.0); Nucleated Red Blood Cells % 0.1 %; Platelet Count (auto) 232 10^3/uL (140-450); Red Blood Cells 4.82 10^6/uL (4.5-5.90); Red Cell Distribution Width 14.8 % (11.8-14.3)
[2024-04-07 12:07] LABS: Chloride 106 mmol/L (98-107); Sodium 144 mmol/L (136-145)
[2024-04-07 12:08] LABS: Anion Gap 8 (5-15); Calcium 10.3 mg/dL (8.7-10.4); Carbon Dioxide 30 mmol/L (20-31)
[2024-04-07 12:13] LABS: BUN/Creatinine Ratio 14.8 (10.0-20.0); Blood Urea Nitrogen 13 mg/dL (9-23); Glucose 78 mg/dL (74-106)
[2024-04-07 14:30] LABS: Urine Bacteria FEW /hpf (None Seen); Urine Blood 1+ /uL (Negative); Urine Clarity Ex.Turbid (Clear); Urine Color Light-Brown (Yellow); Urine Mucus FEW (None Seen); Urine Protein, UAD 1+ (Negative); Urine Squamous Epithelial Cell MOD /hpf (<5); Urine Urobilinogen Normal (Negative); Urine WBC 137 /HPF (0-3); Urine pH 6.5 (5.0-9.0)
[2024-04-07] MEDS ORDERED: DOCUSATE SOD 100 MG CAP PO PRN (15:30)
[2024-04-07] MEDS ORDERED: ACETAMINOPHEN 325 MG TAB PO PRN (15:30)
[2024-04-07] MEDS ORDERED: ONDANSETRON HCL 4 MG/2 ML VIAL IV PRN (15:30)
[2024-04-07 15:37] VITALS: PULSE 80; RESP 16; O2SAT 99
--- NOTE | 2024-04-07 15:42 | DVHHP2 ---
History of Present Illness Reason for Visit: Decreased mobility History of Present Illness Gordo Rush is a 63-year-old male with past medical history of being mentally delayed and cervicale spine surgery about 1 year ago. Patient was sent to ER today by his primary care provider due to decreased ROM and inability to ambulate. Patient had undergone a cervicale spine surgery with Dr. Llanes about 1 year ago due to cervicale stenosis. Patient's mobility has been declining since the surgery. Prior to surgery patient was able to ambulate with a walker, he is now wheelchair bound and sister uses a Eddie lift to get patient in and out of bed. The sister states his decreased ROM is worse on his right side. CARD RUNNER: Other (Mentally delayed) Musculoskeletal: Chronic low back pain, Other (cervicale stenosis) Past Surgical History: Other (cervical spine surgery) Family History: None Smoke: No ALCOHOL: none Drugs: None Lives: with Family Domestic Violence: Neg Review of Systems Constitutional: Yes: Weakness; No: Fever, Chills, Sweats, Malaise, Other Eyes: No: Pain, Vision change, Conjunctivae inflammation, Eyelid inflammation, Other, Redness ENT: No: Ear pain, Ear discharge, Nose pain, Nose discharge, Nose congestion, Mouth pain, Mouth swelling, Throat pain, Throat swelling, Other Respiratory: No: Cough, Dry, Shortness of breath, SOB with excertion, Wheezing, Hemoptysis, Pleuritic Pain, Sputum, Wheezing, Other Cardiovascular: No: Chest Pain, Palpitations, Orthopnea, Paroxysmal Noc. Dyspnea, Edema, Lt Headedness, Other Gastrointestinal: No: Nausea, Vomiting, Abdominal Pain, Diarrhea, Constipation, Melena, Hematochezia, Other Genitourinary: No Dysuria, No Frequency, No Incontinence, No Hematuria, No Retention, No Other Musculoskeletal: shoulder pain, arm pain, back pain, hand pain (Decreased ROM right hand), leg pain (right hip pain); No: other, neck pain, foot pain Skin: No: Rash, Lesions, Jaundice, Bruising, Other Neurological: No: Weakness, Numbness, Incoordination, Change in speech, Confusion, Seizures, Other Allergies: Coded Allergies: NO KNOWN ALLERGIES (Unverified , 05/01/23) Exam Vital Signs Vital Signs Date Time Temp Pulse Resp B/P (MAP) Pulse Ox O2 Delivery O2 Flow Rate FiO2 04/07/24 11:54 80 04/07/24 11:00 98.2 18 151/90 (110) 96 General Appearance: Alert, Oriented X3, Cooperative, moderate distress HEENT: Atraumatic, PERRLA Respiratory: Clear to auscultation, Normal air movement Cardiovascular: Regular rate, Normal S1, Normal S2 Abdominal: Normal bowel sounds, Soft, No tenderness Extremities: No clubbing, No cyanosis, Other (Decreased ROM upper and lower extremities, right side is worse) Skin: No rashes, No breakdown, No significant lesion Neuro: Other (unable to ambulate) Psych/Mental Status: Other (Mentally delayed) Labs/Xrays Labs Test 04/07/24 13:30 04/07/24 11:25 Range/Units Urine Color Light-brown Yellow Urine Clarity Ex.turbid Clear Urine pH 6.5 5.0-9.0 Urine Specific [place] 1.020 1.001-1.035 Urine Protein 1+ H Negative Urine Ketones 1+ H Negative Urine Blood 1+ H Negative /uL Urine Nitrite 1+ H Negative Urine Bilirubin Negative Negative Urine Urobilinogen Normal Negative mg/dL Urine Leukocyte Esterase 3+ Negative /uL Urine RBC 51 0 - 3 /hpf Urine Microscopic WBC 137 H 0-3 /HPF Urine Squamous Epithelial Cells Mod <5 /hpf Urine Bacteria Few H None Seen /hpf Urine Mucus Few None Seen Urine Glucose Normal Normal mg/dL White Blood Count 7.0 4.4-10.8 10^3/uL Red Blood Count 4.82 4.5-5.90 10^6/uL Hemoglobin 14.0 13.5-17.5 g/dL Hematocrit 41.5 41.0-53.0 % Mean Corpuscular Volume 86.1 80.0-100.0 fL Mean Corpuscular Hemoglobin 29.0 28.0-32.0 pg Mean Corpuscular Hemoglobin Concent 33.7 32.0-36.0 g/dL Red Cell Distribution Width 14.8 H 11.8-14.3 % Platelet Count 232 140-450 10^3/uL Mean Platelet Volume 6.9 6.9-10.8 fL Neutrophils (%) (Auto) 50.1 37.0-80.0 % Lymphocytes (%) (Auto) 36.4 10.0-50.0 % Monocytes (%) (Auto) 5.2 0.0-12.0 % Eosinophils (%) (Auto) 7.6 H 0.0-7.0 % Basophils (%) (Auto) 0.7 0.0-2.0 % Neutrophils # (Auto) 3.5 1.6-8.6 10 ^3/uL Lymphocytes # (Auto) 2.6 0.4-5.4 10 ^3/uL Monocytes # (Auto) 0.4 0-1.3 10 ^3/uL Eosinophils # (Auto) 0.5 0-0.8 10 ^3/uL Basophils # (Auto) 0.1 0-0.2 10 ^3/uL Nucleated Red Blood Cells 0.1 % Sodium Level 144 136-145 mmol/L Potassium Level 4.0 3.5-5.1 mmol/L Chloride Level 106 98-107 mmol/L Carbon Dioxide Level 30 20-31 mmol/L Anion Gap 8 5-15 Blood Urea Nitrogen 13 9-23 mg/dL Creatinine 0.88 0.700-1.30 mg/dL Glomerular Filtration Rate Calc 97 >90 mL/min BUN/Creatinine Ratio 14.8 10.0-20.0 Serum Glucose 78 74-106 mg/dL Calcium Level 10.3 8.7-10.4 mg/dL Assessment/Plan Assessment/Plan Assessment: Cervical spinal stenosis, Mentally delayed, Plan: Admit to Med-Surg, Consult Dr. Llanes, Consider physical therapy evaluation if cleared from Dr. Llanes, Plan discussed with: Patient, Other (Sister) My Orders Orders - VIRGINIE CONTEHP Procedure Category Date Status Time Admit ADMIT 04/07/24 Verified 15:21 Code Status CODE 04/07/24 Verified 15:21 Sodium Chloride Lock PHA 04/07/24 Verified (Saline Lock Ns) 22:00 Hydrocodone-Acet PHA 04/07/24 Verified 5/325mg Tab ([place] 15:30 Ondansetron Hcl PHA 04/07/24 Verified (Zofran) 15:30 Docusate Sodium PHA 04/07/24 Verified Capsule (Colace 15:30 Fall Risk Precautions SUSANA 04/07/[address] 15:21 Complete Blood Count LAB 04/08/24 Verified 04:00 Comprehensive LAB 04/08/24 Verified Metabolic Panel 04:00 Condition: Serious SUSANA 04/07/24 Verified 15:21 Date of Service: Apr 07, 2024 Billing Provider: VIRGINIE CONTEH Common Visit Codes: [id number] INP/OBS CARE (MOD) VIRGINIE CONTEH Apr 07, 2024 15:42
[2024-04-07] MEDS: cefTRIAXone 1GM/50ML D5W 50 ML IV ONE (15:48)
[2024-04-07] MEDS: HYDROcodone-ACET 5/325MG TAB PO PRN (15:48)
[2024-04-07 20:00] VITALS: O2SAT 98
[2024-04-07] MEDS: SODIUM CHLOR 0.9% PF (SALINE LOCK) 10ML VIAL/SYR IV SCH (22:26)
[2024-04-07 23:45] VITALS: BP 113/59; PULSE 72; RESP 16; TEMP 97.6; O2SAT 98
[2024-04-08] VITALS (8 sets, daily range): BP systolic 110–130; BP diastolic 57–70; PULSE 69–94; RESP 16–18; TEMP 97.1–98.1; O2SAT 96–99
[2024-04-08 06:47] LABS: Basophils # (auto) 0 10 ^3/uL (0-0.2); Basophils % (auto) 0.3 % (0.0-2.0); Eosinophils # (auto) 0.5 10 ^3/uL (0-0.8); Eosinophils % (auto) 10.3 % (0.0-7.0); Hematocrit 37.4 % (41.0-53.0); Hemoglobin 12.9 g/dL (13.5-17.5); Lymphocytes # (auto) 1.8 10 ^3/uL (0.4-5.4); Lymphocytes % (auto) 35.2 % (10.0-50.0); Mean Corpuscular Hemoglobin 29.2 pg (28.0-32.0); Mean Corpuscular Hgb Conc. 34.4 g/dL (32.0-36.0); Mean Corpuscular Volume 84.7 fL (80.0-100.0); Monocytes # (auto) 0.3 10 ^3/uL (0-1.3); Monocytes % (auto) 5.6 % (0.0-12.0); Neutrophils # (auto) 2.5 10 ^3/uL (1.6-8.6); Neutrophils % (auto) 48.6 % (37.0-80.0); Nucleated Red Blood Cells % 0.1 %; Platelet Count (auto) 220 10^3/uL (140-450); Red Blood Cells 4.42 10^6/uL (4.5-5.90); Red Cell Distribution Width 14.9 % (11.8-14.3); White Blood Cell 5.1 10^3/uL (4.4-10.8)
[2024-04-08 06:52] LABS: Albumin 4.1 g/dL (3.2-4.8); Alkaline Phosphatase 101 U/L (46-116); Anion Gap 9 (5-15); BUN/Creatinine Ratio 13.6 (10.0-20.0); Bilirubin, Total 0.5 mg/dL (0.2-1.0); Blood Urea Nitrogen 12 mg/dL (9-23); Calcium 9.7 mg/dL (8.7-10.4); Carbon Dioxide 28 mmol/L (20-31); Chloride 106 mmol/L (98-107); Glucose 93 mg/dL (74-106); Sodium 143 mmol/L (136-145); Total Protein 7.1 g/dL (5.7-8.2)
[2024-04-08 07:03] LABS: Alanine Aminotransferase < 9 U/L (7-40); Aspartate Aminotransferase 11 U/L (13-40); Potassium 3.4 mmol/L (3.5-5.1)
[2024-04-08] MEDS: POTASSIUM CHL 20 Meq TABLET PO SCH (10:29)
[2024-04-08] MEDS: cefTRIAXone 1GM/50ML D5W 50 ML IV SCH (10:29)
--- NOTE | 2024-04-08 12:16 | ECG ---
[facility] Test Date: 2024-04-07 Test Time: 11:43:32 Pat Name: SHAE HAY Department: ER Room: 0246 A Gender: M Product Safety Head: PENNY : 1960 Requested By: LOU DUNAWAY Order Number: [id number] Reading MD: Omar Aly Measurements Intervals [place] Rate: 80 P: 0 FL: 58 QRS: 59 QRSD: 111 T: 68 QT: 359 QTc: 415 Interpretive Statements Sinus rhythm Short [place] interval Right atrial enlargement Artifact in lead(s) I,III,aVF,V1,V2,V3,V4,V5,V6 Electronically Signed On 04-08-2024 13:24:06 PST by Omar Aly Please click the below link to view image of tracing.
--- NOTE | 2024-04-08 13:43 | DVHINCON2 ---
Consultation - Spinal Surgery Date Seen: Apr 08, 2024 Referring Physician Referring Physician Attending Doctor: Yulissa Wagner Resident Reason for Consultation Reason for Visit: Decreased mobility History of Present Illness History of Present Illness History of Present Illness Gordo Hay is a 63-year-old male with past medical history of being ment ally delayed and cervicale spine surgery about 1 year ago. Patient was sent to ER today by his primary care provider due to decreased ROM and inability to ambulate. Patient had undergone a cervicale spine surgery with Dr. Llanes about 1 year ago due to cervicale stenosis. Patient's mobility has been declining since the surgery. Prior to surgery patient was able to ambulate with a walker, he is now wheelchair bound and sister uses a Eddie lift to get patient in and out of bed. The sister states his decreased ROM is worse on his right side. RESIDENT ASSISTANT: Other (Mentally delayed) Past Medical/Surgical History Past Medical/Surgical History Musculoskeletal: Chronic low back pain, Other (cervicale stenosis) Past Surgical History: Other (cervical spine surgery) Patient had cervical spine surgery per his report in May of 2023. It was at surgical site cervical spine levels C3-6. Family and Social History Family and Social History Family History: None Smoke: No ALCOHOL: none Drugs: None Lives: with Family Domestic Violence: Neg Rajani Hurley Allergies and medications Allergies: Coded Allergies: NO KNOWN ALLERGIES (Unverified , 05/01/23) Home Meds No Active Prescriptions or Reported Meds Review of systems Review of Systems: HEENT:Normal, CVS:Normal, RESPIRATORY:Normal, GI:Normal, :Normal, MSK:Abnormal (Left arm weak unable to make a fist, patient is unable to stand or ambulate), NEURO:Abnormal (Weak bilateral lower legs) Examination Vital signs Vital Signs Date Time Temp Pulse Resp B/P (MAP) Pulse Ox O2 Delivery O2 Flow Rate FiO2 04/08/24 09:00 98.1 94 16 121/57 (78) 99 98.1 04/07/24 23:45 Room Air* 0 21 Medications Current Medications Medications (Trade) Dose Ordered Sig/Yanci Route PRN Reason Start Time Stop Time Status Last Admin Sodium Chloride (Saline Lock Ns) 10 ml Q8HR IV 04/07/24 22:00 04/08/24 10:30 Acetaminophen/ Hydrocodone Bitart (Drums 5/325MG Tab) 1 tab Q4HP PRN PO MODERATE PAIN (4-6 PAIN SCALE) 04/07/24 15:30 04/07/24 15:48 Ondansetron HCl (Zofran) 4 mg Q4HP PRN IV NAUSEA / VOMITING 04/07/24 15:30 Docusate Sodium (Colace Capsule) 100 mg BIDPRN PRN PO FOR CONSTIPATION 04/07/24 15:30 Acetaminophen (Tylenol Tablet) 650 mg Q6HP PRN PO PAIN SCALE 1-3 OR TEMP>100.4 04/07/24 15:30 Ceftriaxone Sodium 50 ml @ 100 mls/hr DAILY@09 IV 04/08/24 09:00 04/08/24 10:29 Potassium Chloride (Klor-Con Tablet) 40 meq DAILY PO 04/08/24 10:00 04/08/24 10:29 Laboratory Imaging: PATIENT: GORDO HAY ACCT: [id number] UNIT: [id number] : 1960 LOC: MRI ROOM / BED: / AGE / SEX: 63 / M ADM STATUS: REG CLI SERVICE [id number] ORDERING PHYSICIAN: CHAD VALLE MD PROCEDURE(s): MNE - CERVICAL WO CONTRAST REASON: SIP SURGERY PAIN ORDER NUMBER(s): [id number], ACCESSION NUMBER(s): [id number] MRI CERVICAL SPINE CLINICAL HISTORY: SIP SURGERY PAIN Comparison: None Technique: Multi planar, multi sequence MR images of the cervical spine without intravenous contrast. FINDINGS: There are postsurgical changes with discectomy and anterior interbody hardware f usion from the C3 to the C6 level. There is moderate susceptibility artifact associated with fusion hardware. There is posterior herniating disc or graft content with heterogeneous signal at the C4-C5 and C5-C6 levels. There is severe compression of the cervical cord at the C4-C5 level. There is hyperintense T2 signal in the cervical cord at the C4- C5 level consistent with compressive myelopathy. The visualized posterior fossa contents appear unremarkable. The craniocervical junction is within normal limi ts. The visualized cervical vertebral bodies demonstrate appropriate height. At C2-C3 there is mild disc bulge and mild facet arthropathy. There is no canal or facet arthropathy. At C3-C4 there is posterior disc osteophyte complex and bilateral facet and uncovertebral arthropathy. There is mild to moderate spinal canal stenosis. There is moderate bilateral neural foraminal stenosis. At C4-C5 there is posterior herniating disc or graft contents resulting in severe spinal canal stenosis. There is severe bilateral foraminal stenosis. At C5-C6 there is posterior herniating disc or graft contents resulting in [id number] spinal canal stenosis. There is moderate bilateral neural foraminal stenosis. At C6-C7 there is mild disc bulge without canal or significant foraminal stenosis. At C7-T1 there mild disc bulge without canal stenosis. There is mild bilateral neural foraminal stenosis. IMPRESSION: 1. Postsurgical changes with discectomy and anterior/interbody hardware fusion from the C3 to the C6 level. 2. There is posterior herniating disc or graft contents with heterogeneous signal at the C4-C5 and C5-C6 levels. There is severe spinal canal and bilateral neural foraminal stenosis at the C4-C5 level. 3. 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 4. Degenerative changes at the unfused levels as described above. PATIENT: GORDO HAY ACCT: [id number] UNIT: [id number] : 1960 [facility] AGE / SEX: 62 / M ADM STATUS: ADM IN SERVICE 1000 ORDERING PHYSICIAN: BLAYNE FRENCH MD PROCEDURE(s): NKICT - NECK WITHOUT CONTRAST REASON: Infection ORDER NUMBER(s): [id number], ACCESSION NUMBER(s): [id number] CT NECK WITHOUT CONTRAST INDICATION: Infection EXAM DATE: 05/17/2023 10:00 AM CDT COMPARISON: 05/14/23 RADIATION DOSE: CTDIvol: 17 mGy, DLP: 532 mGy*cm PROCEDURE: Using the CT scanner, contiguous axial images were obtained from the great vessels to above the orbits. Coronal and sagittal reformatted images were then generated. All CT scans at this medical facility are performed using dose modulation techniques as appropriate to a performed exam including the following: Automated exposure control was utilized; adjustment of the MA and/or KV according to patient size; and use of iterative reconstruction technique. FINDINGS: Interval decreased size of the left lateral neck and anterior cervical spinal fluid collection with adjacent wound vac. Debris is noted in the trachea. Post surgical changes from anterior disc spacer placement. The pharynx, larynx and trachea are otherwise unchanged.. The parotid, submandibular and thyroid glands appear normal. No mass or lymphadenopathy is seen. The visible paranasal sinuses, mastoid air cells and middle ear cavities are normally aerated. The vasculature, and lung apices are normal. The visualized intracranial structures are normal. IMPRESSION: Interval decreased size of the left lateral neck and anterior cervical spinal fluid collection with adjacent wound vac. Post surgical changes from anterior disc spacer placement. Labs Test 04/08/24 05:55 04/07/24 13:30 Range/Units White Blood Count 5.1 # 4.4-10.8 10^3/uL Red Blood Count 4.42 L 4.5-5.90 10^6/uL Hemoglobin 12.9 L 13.5-17.5 g/dL Hematocrit 37.4 L 41.0-53.0 % Mean Corpuscular Volume 84.7 80.0-100.0 fL Mean Corpuscular Hemoglobin 29.2 28.0-32.0 pg Mean Corpuscular Hemoglobin Concent 34.4 32.0-36.0 g/dL Red Cell Distribution Width 14.9 H 11.8-14.3 % Platelet Count 220 140-450 10^3/uL Mean Platelet Volume 6.7 L 6.9-10.8 fL Neutrophils (%) (Auto) 48.6 37.0-80.0 % Lymphocytes (%) (Auto) 35.2 10.0-50.0 % Monocytes (%) (Auto) 5.6 0.0-12.0 % Eosinophils (%) (Auto) 10.3 H 0.0-7.0 % Basophils (%) (Auto) 0.3 0.0-2.0 % Neutrophils # (Auto) 2.5 1.6-8.6 10 ^3/uL Lymphocytes # (Auto) 1.8 0.4-5.4 10 ^3/uL Monocytes # (Auto) 0.3 0-1.3 10 ^3/uL Eosinophils # (Auto) 0.5 0-0.8 10 ^3/uL Basophils # (Auto) 0 0-0.2 10 ^3/uL Nucleated Red Blood Cells 0.1 % Sodium Level 143 136-145 mmol/L Potassium Level 3.4 L 3.5-5.1 mmol/L Chloride Level 106 98-107 mmol/L Carbon Dioxide Level 28 20-31 mmol/L Anion Gap 9 5-15 Blood Urea Nitrogen 12 9-23 mg/dL Creatinine 0.88 0.700-1.30 mg/dL Glomerular Filtration Rate Calc 97 >90 mL/min BUN/Creatinine Ratio 13.6 10.0-20.0 Serum Glucose 93 74-106 mg/dL Calcium Level 9.7 8.7-10.4 mg/dL Total Bilirubin 0.5 0.2-1.0 mg/dL Aspartate Amino Transferase (AST) 11 L 13-40 U/L Alanine Aminotransferase (ALT) < 9 7-40 U/L Alkaline Phosphatase 101 46-116 U/L Total Protein 7.1 5.7-8.2 g/dL Albumin 4.1 3.2-4.8 g/dL Urine Color Light-brown Yellow Urine Clarity Ex.turbid Clear Urine pH 6.5 5.0-9.0 Urine Specific [place] 1.020 1.001-1.035 Urine Protein 1+ H Negative Urine Ketones 1+ H Negative Urine Blood 1+ H Negative /uL Urine Nitrite 1+ H Negative Urine Bilirubin Negative Negative Urine Urobilinogen Normal Negative mg/dL Urine Leukocyte Esterase 3+ Negative /uL Urine RBC 51 0 - 3 /hpf Urine Microscopic WBC 137 H 0-3 /HPF Urine Squamous Epithelial Cells Mod <5 /hpf Urine Bacteria Few H None Seen /hpf Urine Mucus Few None Seen Urine Glucose Normal Normal mg/dL Microbiology Date/Time Source Procedure Growth Status 04/07/24 13:30 Voided Urine Urine Culture - Preliminary Resulted Examination: GENERAL:Normal, HEENT:Normal, NECK:Abnormal (Limited range of motion with neck heul-ns-gljra Pepcid down), LUNGS:Normal, CVS:Normal, ABDOMEN:Normal, MSK:Normal (Bilateral leg weakness, able to make fists with bilateral hands), SKIN:Normal, NEURO:Abnormal (Unable to walk, 3/5 extremities bilaterally lower with knee left. 2/5 pedal pushes. Currently can only use a wheelchair), :Normal (No complaints of bowel or bladder incontinence) Problem List/Assessment/Plan Problems: (1) Central cord syndrome (2) Generalized weakness (3) Cervical spinal stenosis Assessment and Plan 1. posterior herniating disc or graft contents with heterogeneous signal at the C4-C5 and C5-C6 levels. There is severe spinal canal and bilateral neural foraminal stenosis at the C4-C5 level. Patient is willing to consider a surgical procedure for the cervical stenosis. Addendum 04/09/24: After extensive review of the patient radiologic studies and consideration of the physical exam it is determined that the patient needs a surgery which utilizes a posterior approach to his cervical spine, it is highly possible he will require a posterior laminectomy. This particular surgery positioning requires a stabilization device called Garner tongs which is not available. Due to the complexity of this surgery Dr Llanes is requesting that the patient be transferred to a higher level of care with neurosurgical capacity. Continue supportive care per admitting team's discretion Dr. Pollack we will be in to see the patient on 04/09/2024 At this time current MRIs dated as of 03/09/2024 are sufficient there is no plan for repeat MRI at this time. Call with questions Alexia Patel [facility] Orthopaedic Spine Surgery nurse practitioner For Dr Nanda Llanes Patient was examined, chart reviewed, labs evaluated, and diagnostic studies and findings analyzed. Case was discussed with Dr. Eric Llanes who formulated the plan of care. This medical document was created using an electronic medical record system with [employer] computerized dictation system. Although this document has been carefully reviewed, there might still be some phonetic and typographical errors. These areas are purely typographical due to imperfections of the software programs, and do not reflect any compromise in the patient's medical care. Plan discussed with Plan discussed with: Patient, Other (Linda RN extension [phone]) CARLOS PATEL NP Apr 08, 2024 13:43
--- NOTE | 2024-04-08 16:46 | DVHPNRES ---
Progress Note Date Seen: Apr 08, 2024 Resident Creating Document: RIVAS BATRES RESIDENT Has the PT tested + for MRSA If YES, has PT been informed?: No Medical Necessity Reason Pt with a Central, PICC or Fol: No Subjective Review of Systems 61-year-old male with past medical history of mild cognitive delay, cervical stenosis with spinal cord injury, status post decompression c4-c6 may 2023, cervical abscess pseudomona may 2023 hyperlipidemia, UTI. Per sister, patient was seen by Dr. Perkins as outpatient who ordered MRI of the cervical spine which was found severe stenosis of cervical canal. Per patient he has not be able to walk since the surgery last year patient also has decrease of range of motion in the legs, mild pain, and loss of strength in the right upper extremity. Patient lives with the sister does not take medications at home Objective vital signs Vital Sign Date Time Temp Pulse Resp B/P (MAP) Pulse Ox O2 Delivery O2 Flow Rate FiO2 04/08/24 13:00 98.1 70 16 124/63 (83) 96 98.1 04/07/24 23:45 Room Air* 0 21 Total Intake and Output 04/07/24 04/07/24 04/08/24 15:00 23:00 07:00 Intake Total 50 ml 100 ml Balance 50 ml 100 ml medications Current Medications Medications Dose Ordered Sig/Yanci Route Start Time Stop Time Status Last Admin Dose Admin Sodium Chloride 10 ml Q8HR IV 04/07/24 22:00 04/08/24 10:30 10 ML Acetaminophen/ Hydrocodone Bitart 1 tab Q4HP PRN PO 04/07/24 15:30 04/07/24 15:48 1 TAB Ondansetron HCl 4 mg Q4HP PRN IV 04/07/24 15:30 Docusate Sodium 100 mg BIDPRN PRN PO 04/07/24 15:30 Acetaminophen 650 mg Q6HP PRN PO 04/07/24 15:30 Ceftriaxone Sodium 50 ml @ 100 mls/hr DAILY@09 IV 04/08/24 09:00 04/08/24 10:29 100 MLS/HR Potassium Chloride 40 meq DAILY PO 04/08/24 10:00 04/08/24 10:29 40 MEQ Examination General Appearance: Alert, Oriented X3, Cooperative, moderate distress HEENT: Atraumatic, PERRLA Respiratory: Clear to auscultation, Normal air movement Cardiovascular: Regular rate, Normal S1, Normal S2 Abdominal: Normal bowel sounds, Soft, No tenderness Extremities: Decreased ROM upper and lower extremities, right side is worse Skin: No rashes, No breakdown, No significant lesion Neuro: unable to ambulate Psych/Mental Status: Mentally delayed laboratory and microbiology Laboratory Tests 04/08/24 05:55 Test 04/08/24 05:55 Range/Units Serum Glucose 93 74-106 mg/dL Microbiology Date/Time Source Procedure Growth Status 04/07/24 13:30 Voided Urine Urine Culture - Preliminary Resulted Problem List/Assessment/Plan Problem List/Assessment/Plan #severe compression of the cervical cord at the C4-C5 level with compressive myelopathy. #s/p discectomy rom the C3 to the C6 level. #severe spinal canal and bilateral neural foraminal stenosis at the C4-C5 level. #mild canal stenosis T4-T8 #severe bilateral neural foramina narrowing at L5-S1 #H/o cervical wound infection #Mild cognitive delay #UTI? Images: cervical spine MRI 1. Postsurgical changes with discectomy and anterior/interbody hardware fusion from the C3 to the C6 level. 2. There is posterior herniating disc or graft contents with heterogeneous signal at the C4-C5 and C5-C6 levels. There is severe spinal canal and bilateral neural foraminal stenosis at the C4-C5 level. 3. 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 4. Degenerative changes at the unfused levels as described above. thoracic spine MRI There is a normal kyphotic curvature of the thoracic spine. Bone marrow signal is within normal limits. The vertebral body heights are maintained. There is mild multilevel intervertebral disc space narrowing in the thoracic spine at T4-T5, T5-T6, T6-T7 and T7-T8. There is a posterior central disc protrusion at T5-T6, T6-T7, T7-T8. Disc protrusions contact but do not deform the cervical spinal cord. There is mild canal stenosis at these levels. lumbar spine: Multilevel degenerative changes of the lumbar spine with mild central canal narrowing at L4-5, L5-S1 with severe bilateral neural foramina narrowing at L5-S1 and associated discogenic endplate changes. Case discussed with Dr Llanes: the pateint will need a posterior spinal decompression and rush tongs are not available in the [facility], so [facility] need [facility] a [facility]. Transfer order is placed Regular diet Pain management Blood and urine culture Pending transfer to [facility] level of care Ceftriaxone IV Case discussed with Dr Christina Time spent on care 23 min Plan discussed with: Patient, Other (rn ) My Orders My Orders Orders - RIVAS BATRES RESIDENT Procedure Category Date Status Time Potassium Er Tablet PHA 04/08/24 In Process (Klor-Con Tablet) 10:00 Blood Culture MADDIE 04/08/24 In Process 09:08 * Wound Consult CONS 04/08/24 Transmitted Communication Order ORDERS 04/08/24 Transmitted 13:21 Obtain Clean Catch SUSANA 04/08/24 In Process Urine 16:37 Urine Bacterial MADDIE 04/08/24 Logged Culture 16:37 Date of Service: Apr 08, 2024 Billing Provider: JASWINDER CHRISTINA MD Common Visit Codes: [id number] INP/OBS CARE([facility]) RIVAS BATRES RESIDENT Apr 08, 2024 16:46 JASWINDER CHRISTINA MD Apr 12, 2024 15:25
[2024-04-09 01:00] VITALS: BP 120/69; PULSE 77; RESP 18; TEMP 98.1; O2SAT 98
[2024-04-09 05:00] VITALS: BP 129/73; PULSE 83; RESP 18; TEMP 98.1; O2SAT 98
[2024-04-09 08:35] VITALS: BP 106/62; PULSE 67; RESP 16; TEMP 97.4; O2SAT 98
[2024-04-09 16:30] VITALS: BP 130/72; PULSE 82; RESP 16; TEMP 99.2; O2SAT 98
--- NOTE | 2024-04-09 17:55 | DVHDSRES ---
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 Labs/Diagnostic Data: Laboratory Results Test 04/08/24 05:55 04/07/24 13:30 White Blood Count 5.1 10^3/uL (4.4-10.8) Red Blood Count 4.42 10^6/uL (4.5-5.90) Hemoglobin 12.9 g/dL (13.5-17.5) Hematocrit 37.4 % (41.0-53.0) Mean Corpuscular Volume 84.7 fL (80.0-100.0) Mean Corpuscular Hemoglobin 29.2 pg (28.0-32.0) Mean Corpuscular Hemoglobin Concent 34.4 g/dL (32.0-36.0) Red Cell Distribution Width 14.9 % (11.8-14.3) Platelet Count 220 10^3/uL (140-450) Mean Platelet Volume 6.7 fL (6.9-10.8) Neutrophils (%) (Auto) 48.6 % (37.0-80.0) Lymphocytes (%) (Auto) 35.2 % (10.0-50.0) Monocytes (%) (Auto) 5.6 % (0.0-12.0) Eosinophils (%) (Auto) 10.3 % (0.0-7.0) Basophils (%) (Auto) 0.3 % (0.0-2.0) Neutrophils # (Auto) 2.5 10 ^3/uL (1.6-8.6) Lymphocytes # (Auto) 1.8 10 ^3/uL (0.4-5.4) Monocytes # (Auto) 0.3 10 ^3/uL (0-1.3) Eosinophils # (Auto) 0.5 10 ^3/uL (0-0.8) Basophils # (Auto) 0 10 ^3/uL (0-0.2) Nucleated Red Blood Cells 0.1 % Sodium Level 143 mmol/L (136-145) Potassium Level 3.4 mmol/L (3.5-5.1) Chloride Level 106 mmol/L (98-107) Carbon Dioxide Level 28 mmol/L (20-31) Anion Gap 9 (5-15) Blood Urea Nitrogen 12 mg/dL (9-23) Creatinine 0.88 mg/dL (0.700-1.30) Glomerular Filtration Rate Calc 97 mL/min (>90) BUN/Creatinine Ratio 13.6 (10.0-20.0) Serum Glucose 93 mg/dL (74-106) Calcium Level 9.7 mg/dL (8.7-10.4) Total Bilirubin 0.5 mg/dL (0.2-1.0) Aspartate Amino Transferase (AST) 11 U/L (13-40) Alanine Aminotransferase (ALT) < 9 U/L (7-40) Alkaline Phosphatase 101 U/L (46-116) Total Protein 7.1 g/dL (5.7-8.2) Albumin 4.1 g/dL (3.2-4.8) Urine Color Light-brown (Yellow) Urine Clarity Ex.turbid (Clear) Urine pH 6.5 (5.0-9.0) Urine Specific [place] 1.020 (1.001-1.035) Urine Protein 1+ (Negative) Urine Ketones 1+ (Negative) Urine Blood 1+ /uL (Negative) Urine Nitrite 1+ (Negative) Urine Bilirubin Negative (Negative) Urine Urobilinogen Normal mg/dL (Negative) Urine Leukocyte Esterase 3+ /uL (Negative) Urine RBC 51 /hpf (0 - 3) Urine Microscopic WBC 137 /HPF (0-3) Urine Squamous Epithelial Cells Mod /hpf (<5) Urine Bacteria Few /hpf (None Seen) Urine Mucus Few (None Seen) Urine Glucose Normal mg/dL (Normal) Other Laboratory Tests 04/08/24 05:55 Brief Hx & Hospital Course: A 71-year-old male with a history of mild cognitive delay and cervical spine surgery one year ago, involving discectomy and anterior fusion from C3 to C6 for cervical myelopathy, presented with progressive neurologic deficits, including worsening lower extremity weakness and loss of sensation. His postoperative course had been complicated by persistent spinal stenosis and now severe degenerative changes, leading to significant functional decline. On admission, imaging revealed severe spinal canal and bilateral neural foraminal stenosis at the C4-C5 level with posterior herniation of the graft construct and hyperintense T2 signal changes, consistent with compressive myelopathy. Thoracic spine imaging showed disc protrusions at multiple levels (T4-T8) without central spinal cord compression but with narrowing of the spinal canal. Lumbar spine imaging demonstrated multilevel degenerative changes with central canal narrowing at L4-L5, L5-S1, and severe bilateral foraminal narrowing. The patient also reported , and his hospital course was further complicated by a urinary tract infection (UTI), for which ceftriaxone was initiated. Given the extent of his spinal pathology, progressive neurologic compromise, and the unavailability of necessary resources at our facility for posterior spinal decompression and Garner tong application, [facility]. Pain management was optimized during the hospital stay. Blood and urine cultures were obtained, and empiric antibiotics were started for the UTI. The case and transfer plan were discussed with Dr. Llanes and the patient, who remains stable at the time of transfer. Orders for transfer have been placed, and the patient will require urgent evaluation for definitive surgical management at the receiving facility. General Appearance: Alert, Oriented X3, Cooperative, moderate distress HEENT: Atraumatic, PERRLA Respiratory: Clear to auscultation, Normal air movement Cardiovascular: Regular rate, Normal S1, Normal S2 Abdominal: Normal bowel sounds, Soft, No tenderness Extremities: Decreased ROM upper and lower extremities, right side is worse Skin: No rashes, No breakdown, No significant lesion Neuro: unable to ambulate Psych/Mental Status: Mentally delayed Case discussed with Dr Christina Time spent on care 23 min Consults/Reason for consult spine surgery due to cervical stenosis Operations or Procedures MRI CERVICAL SPINE CLINICAL HISTORY: SIP SURGERY PAIN Comparison: None Technique: Multi planar, multi sequence MR images of the cervical spine without intravenous contrast. FINDINGS: There are postsurgical changes with discectomy and anterior interbody hardware fusion from the C3 to the C6 level. There is moderate susceptibility artifact associated with fusion hardware. There is posterior herniating disc or graft content with heterogeneous signal at the C4-C5 and C5-C6 levels. There is severe compression of the cervical cord at the C4-C5 level. There is hyperintense T2 signal in the cervical cord at the C4- C5 level consistent with compressive myelopathy. The visualized posterior fossa contents appear unremarkable. The craniocervical junction is within normal limits. The visualized cervical vertebral bodies demonstrate appropriate height. At C2-C3 there is mild disc bulge and mild facet arthropathy. There is no canal or facet arthropathy. At C3-C4 there is posterior disc osteophyte complex and bilateral facet and uncovertebral arthropathy. There is mild to moderate spinal canal stenosis. There is moderate bilateral neural foraminal stenosis. At C4-C5 there is posterior herniating disc or graft contents resulting in severe spinal canal stenosis. There is severe bilateral foraminal stenosis. At C5-C6 there is posterior herniating disc or graft contents resulting in [id number] spinal canal stenosis. There is moderate bilateral neural foraminal stenosis. At C6-C7 there is mild disc bulge without canal or significant foraminal stenosis. At C7-T1 there mild disc bulge without canal stenosis. There is mild bilateral neural foraminal stenosis. IMPRESSION: 1. Postsurgical changes with discectomy and anterior/interbody hardware fusion from the C3 to the C6 level. 2. There is posterior herniating disc or graft contents with heterogeneous signal at the C4-C5 and C5-C6 levels. There is severe spinal canal and bilateral neural foraminal stenosis at the C4-C5 level. 3. 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 4. Degenerative changes at the unfused levels as described above. Procedure Details: Pre Op Diagnosis: Acute spinal cord injury in a patient with cervical spinal stenosis causing central cord syndrome/myelopathy Post Op Diagnosis: same as pre op Procedure: Cervical 3 to 4 anterior cervical discectomy with Cervical 3-4 foraminotomies and facetectomies to decompression the spinal canal and Cervical 4 nerve roots Cervical 4 to 5 anterior cervical discectomy with Cervical 4-5 foraminotomies and facetectomies to decompression the spinal canal and Cervical 5 nerve roots Cervical 5 to 6 anterior cervical discectomy with Cervical 5-6 foraminotomies and facetectomies to decompression the spinal canal and Cervical 6 nerve roots Cervical 3-6 anterior cervical Fusion Cervical 3-6 anterior cervical instrumentation with freestanding cages Cervical 3-4 placement of allograft prosthetic device Cervical 4-5 placement of allograft prosthetic device Cervical 5-6 placement of allograft prosthetic device Microscope for micro dissection Surgeon: Eric Llanes MD Anesthesia: General Assist: Shruthi Nieves BOX SHOOK PATCHER Fluids and EBL: see anesthesia note Procedure Note: The patient was seen in the Pre-anesthesia Care Unit and the site of the incision was initialed by me with a felt tipped marker. All questions by the patient were answered to the satisfaction of the patient and the chart was reviewed. The patient was taken to the operating room and placed supine on the [facility] Flat top table. General anesthesia was induced. Neuromonitoring leads were placed. A rolled towel was placed between the shoulder blades to hyperextend out the chest which will allow better exposure of the cervical spine. Halter traction to 10 pounds was placed. The arms were padded and adducted to the patients side making sure all pulses in the hands were present. Tape traction was undertaken on the shoulders to give us better radiographic exposure of the distal cervical spine. A gel-pad was placed under the occiput and 5 degrees of extension was placed on the neck without adverse effects to the patient. The anterior neck was prepped and draped. Pre-operative antibiotics were given 30 minutes prior to the start of the procedure. A c-arm fluoroscope was used to aixa out the incision site. At this time, a time out was taken per usual protocol. Next an incision was made through the skin with a 15 blade scalpel through the subcutaneous tissue down to the platysma. Self-retainers were placed. The platysma was incised along the longitudinal border with a Metzenbaum scissors. Blunt dissection was made through the deep cervical and pre-tracheal fascia taking care to protect the carotid sheath laterally and the Trachea/esophagus medially. The dissection was carried down to the prevertebral fascia. Any crossing vessels were ligated using a vascular clip or coagulated with a bovie. An esophageal retractor was next used to retract the trachea/esophagus and a bent [address] through the anterior annulus of the cervical disk and a lateral C-arm fluoroscopic image was taken to confirm that we were at the correct level. Next, bovie electrocautery was used to expose the bones of cervical 3,4,5,6 and bipolar electrocuatery was used to lift up the Longus colli and capitus muscles. Black-Belt Self Retainers were used to retract the longus colli and capitus muscles bilaterally as well as the trachea/esophagus to the right and the carotid sheath to the left. Smooth thin Black-Belt retractors were placed proximally and distally and a needle was placed again in the anterior annulus of the disk and an image taken to confirm the correct level. At this point, the microscope was wheeled in and an 11 blade scalpel incised the anterior annulus of the cervical 3/4 and 4/5 and 5/6 disks. Next, straight and curved curettes removed the remainder of the disks all the way down to the posterior longitudinal ligament. Carefully, a Kerison number one rongeur incised the posterior longitudinal ligament at the lateral end of the above disks and using a micro, blunt tip nerve hook to separate the posterior longitudinal ligament from the dura, alternating 1 mm and 2 mm Kerison rongeurs removed the posterior longitudinal ligament. Next, Kerison 1mm and 2 mm rongeurs were alternated to get under the uncinate processes and undercut them to perform foraminotomies and factectomies at the cervical 3/4 and 4/5 and 5/6 levels to decompress the central canal and cervical 4,5 and 6 nerve roots. Next the microscope was wheeled away and the c-arm fluoroscope was wheeled into the field and a lateral image was obtained. Increasing size graft trials were used starting at a 5 mm thick size until the proper tension in the disk space and height mandaeism obtained. We then placed final free standing cages at C3/4 and 4/5 and 5/6. Satisfactory placement was confirmed in the AP and lateral views using a C-arm fluoroscope. Copious irrigation of the wound with sterile saline and all bleeding was controlled before closure initiated. At this point, a [address] [place] [address] Drain was place deep to the Platysma muscle and the Platysma was approximated with one interrupted 0-Vicryl suture. The subcutaneous tissue was closed with interrupted 2-0 vicryl sutures and the skin was closed with lakhwinder. Sterile dressings were placed and a cervical collar placed, the patient extubated, transferred to the stretcher and taken to the Recovery Room in unremarkable condition. Other Notes: Following the case, in PACU, the patient had placement of a Montcalm J equivalent cervical collar and external bone stimulator OF NOTE; THE PATIENT WAS QUITE DISHEVELLED AND BROUGHT FROM THE MED SURG UNIT IN TERRIBLY DIRTY CONDITION WITH FOOD SITTING ON HIS CHEST AND SMELLING OF FECES/URINE DUE TO NOT HAVING TAKEN A BATH FOR QUITE A WHILE. EXTENSIVE CLEANING WAS REQUIRED ON PRE OP AND IN OR TO MAKE SURE TO REDUCE THE RISK OF INFECTION FROM THE PATIENT BEING UNHYGEINIC ALSO, THE MRI REVEALED SWELLING IN THE SPINAL CORD DUE TOTHE INJURY AND CARE HAD TO BE TAKEN TO MAKE SURE THE NECK WOULD NOT BE EXTENDED EXCESSIVELY. 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 #s/p discectomy rom the C3 to the C6 level. #severe spinal canal and bilateral neural foraminal stenosis at the C4-C5 level. #mild canal stenosis T4-T8 #severe bilateral neural foramina narrowing at L5-S1 #H/o cervical wound infection #Mild cognitive delay #UTI? Discharge Disposition: Acute Care Facility Discharge Statement: "Patient was advised to return to the ER or call 911 if any headaches, dizziness, shortness of breath, chest pain, abdominal pain, bleeding, fevers, or worsening of medical condition. Patient was counseled about treatment plan, medications, possible side effects, patientverbalized understanding. All questions were answered to the best of my ability. This discharge took greater then 30 minutes in planning, reviewing documentation, counseling the patient, and discussing with other team members." ASSESSMENT ASSESSMENT Assessment Date of Service: Apr 09, 2024 Billing Provider: JASWINDER CHRISTINA MD Common Visit Codes: 90552-LDP/OBS DISCH DAY >30min RIVAS BATRES RESIDENT Apr 09, 2024 17:55 JASWINDER CHRISTINA MD Apr 12, 2024 15:27
[2024-04-09 21:00] VITALS: BP 114/64; PULSE 75; RESP 19; TEMP 98; O2SAT 97
[2024-04-10 01:00] VITALS: BP 116/62; PULSE 72; RESP 18; TEMP 98; O2SAT 98
[2024-04-10 05:00] VITALS: BP 116/59; PULSE 75; RESP 17; TEMP 97.6; O2SAT 97
[2024-04-10 07:33] LABS: Basophils # (auto) 0 10 ^3/uL (0-0.2); Basophils % (auto) 0.3 % (0.0-2.0); Eosinophils # (auto) 0.5 10 ^3/uL (0-0.8); Eosinophils % (auto) 11.2 % (0.0-7.0); Hematocrit 36.3 % (41.0-53.0); Lymphocytes % (auto) 44.7 % (10.0-50.0); Mean Corpuscular Hgb Conc. 35.8 g/dL (32.0-36.0); Mean Corpuscular Volume 83.8 fL (80.0-100.0); Monocytes # (auto) 0.2 10 ^3/uL (0-1.3); Monocytes % (auto) 5.2 % (0.0-12.0); Neutrophils # (auto) 1.7 10 ^3/uL (1.6-8.6); Neutrophils % (auto) 38.6 % (37.0-80.0); Nucleated Red Blood Cells % 0.1 %; Platelet Count (auto) 221 10^3/uL (140-450); Red Blood Cells 4.33 10^6/uL (4.5-5.90); Red Cell Distribution Width 14.7 % (11.8-14.3); White Blood Cell 4.5 10^3/uL (4.4-10.8)
[2024-04-10 07:40] LABS: Albumin 3.9 g/dL (3.2-4.8); Alkaline Phosphatase 98 U/L (46-116); Anion Gap 7 (5-15); BUN/Creatinine Ratio 16.1 (10.0-20.0); Bilirubin, Total 0.5 mg/dL (0.2-1.0); Blood Urea Nitrogen 14 mg/dL (9-23); Calcium 9.8 mg/dL (8.7-10.4); Carbon Dioxide 29 mmol/L (20-31); Chloride 102 mmol/L (98-107); Glucose 91 mg/dL (74-106); Potassium 3.9 mmol/L (3.5-5.1); Sodium 138 mmol/L (136-145); Total Protein 6.8 g/dL (5.7-8.2)
[2024-04-10 07:42] LABS: Alanine Aminotransferase < 9 U/L (7-40); Aspartate Aminotransferase 10 U/L (13-40)
[2024-04-10 08:41] VITALS: BP 104/70; PULSE 59; RESP 17; TEMP 97.7; O2SAT 96
[2024-04-10 23:32] VITALS: BP 107/69; PULSE 82; RESP 17; TEMP 97.3; O2SAT 100
== END 2024-04-10 12:20 | disposition short-term general hospital (02) | DRG 552 ==
LOC: EDBD 10:58 → ER 11:00 → OVERFLOW 15:21 → EAST 23:40
PROVIDERS: ADMIT Student in an Organized Health Care Education/Training Program; ATTEND Student in an Organized Health Care Education/Training Program
DX: M48.02 Spinal stenosis, cervical region (principal); N39.0 Urinary tract infection, site not specified; G95.29 Other cord compression; G89.29 Other chronic pain; S14.129A Central cord syndrome at unspecified level of cervical spinal cord, initial encounter; M48.04 Spinal stenosis, thoracic region; Z79.899 Other long term (current) drug therapy; Z99.3 Dependence on wheelchair; X58.XXXA Exposure to other specified factors, initial encounter; Y93.89 Activity, other specified; Y92.89 Other specified places as the place of occurrence of the external cause; Y99.8 Other external cause status
CPT/HCPCS: 36415; 80048; 80053; 81001; 85025; 87040; 87086; 93005; 96365; 99291; G0378